=== PATIENT | male | born 1965 | race Caucasian/White ===

== ENCOUNTER 2018-12-12 00:37 | Outpatient (CLI) | payer BC ==
[~2018-12-12 00:37] MED LIST: AMIO200T54 PO; APIX5TAB3 PO; ATOR40TA PO; DIGO250T77 PO; FURO40TA4 PO; GABA-530 PO; GLYB5TAB7 PO; LEVO25TA7 PO; METF500T PO; METO25TA6 PO; POTA-82 PO
== END 2018-12-12 23:59 | disposition home or self-care (01) ==
LOC: DIABETIC 00:37
PROVIDERS: ATTEND Student in an Organized Health Care Education/Training Program
DX: E11.9 Type 2 diabetes mellitus without complications (principal); I10 Essential (primary) hypertension
CPT/HCPCS: G0108

== ENCOUNTER 2020-03-07 10:58 | Day surgery (SDC) | payer BC ==
[2020-03-07] VITALS (13 sets, daily range): BP systolic 104–135; BP diastolic 63–86
[~2020-03-07] VITALS: Ht 190.5 cm; Wt 119.7 kg
[~2020-03-07 10:58] MED LIST changes: -AMIO200T54 PO; +AMIO200T62 PO; +DIGO250T2 PO; -DIGO250T77 PO
[2020-03-07] MEDS ORDERED: fentaNYL/PF 50MCG/1 ML 2ML syringe IV ONE (11:20)
[2020-03-07] MEDS ORDERED: MIDAZolam 1mg/ml 10ml vial IV ONE (11:20)
[2020-03-07] MEDS ORDERED: GLIM2TAB6 PO (11:27)
[2020-03-07] MEDS ORDERED: EMPA25TA PO (11:27)
[2020-03-07] MEDS ORDERED: SEMA1PEN (11:27)
[2020-03-07] MEDS ORDERED: ALLO300T8 PO (11:27)
[2020-03-07 12:01] LABS: BASOPHILS % (AUTO) 0.5 % (0-1); EOSINOPHILS # (AUTO) 0.1 X10'3 (0-0.9); EOSINOPHILS % (AUTO) 1.5 % (0-6); HEMATOCRIT 42.5 % (42.0-52.0); HEMOGLOBIN 14.1 g/dl (14.0-17.9); LYMPHOCYTES # (AUTO) 0.8 X10'3 (1.1-4.8); MEAN CORPUSCULAR HEMOGLOBIN 30.1 PG (27.0-31.0); MEAN CORPUSCULAR HGB CONC 33.1 g/dL (33.0-36.5); MONOCYTES # (AUTO) 0.7 X10'3 (0-0.9); MONOCYTES % (AUTO) 9.2 % (2-12); NEUTROPHILS # (AUTO) 5.5 X10'3 (1.8-7.7); NEUTROPHILS % (AUTO) 77.8 % (42-75); PLATELET COUNT 202 X10'3 (140-440); RED BLOOD COUNT 4.67 X10'6 (4.70-6.10); RED CELL DISTRIBUTION WIDTH 17.1 % (11.5-14.5); WHITE BLOOD COUNT 7.1 X10'3 (4.5-11.0)
[2020-03-07 12:12] LABS: ALBUMIN 3.5 G/DL (3.4-5.0); ANION GAP 6 (8-16); BLOOD UREA NITROGEN 30 MG/DL (7-18); BUN/CREATININE RATIO 16.8 (5.4-32.0); CHLORIDE 105 MMOL/L (99-107); CREATININE 1.79 MG/DL (0.60-1.10); GLUCOSE 160 MG/DL (70-104); MAGNESIUM 2.3 MG/DL (1.5-2.4); POTASSIUM 5.2 MMOL/L (3.5-5.1); SODIUM 138 MMOL/L (135-145); TOTAL CARBON DIOXIDE 26.9 MMOL/L (24-32); eGFR 39 ML/MIN
== END 2020-03-07 15:05 | disposition home or self-care (01) ==
LOC: SSTAY O 10:58
PROVIDERS: ATTEND Internal Medicine Cardiovascular Disease
DX: I48.91 Unspecified atrial fibrillation (principal); I25.10 Atherosclerotic heart disease of native coronary artery without angina pectoris; I25.2 Old myocardial infarction; E11.9 Type 2 diabetes mellitus without complications; G43.909 Migraine, unspecified, not intractable, without status migrainosus; G47.33 Obstructive sleep apnea (adult) (pediatric); D64.9 Anemia, unspecified; Z79.899 Other long term (current) drug therapy; Z79.84 Long term (current) use of oral hypoglycemic drugs; Z98.890 Other specified postprocedural states; Z87.891 Personal history of nicotine dependence; Z79.01 Long term (current) use of anticoagulants; Z95.5 Presence of coronary angioplasty implant and graft; Z83.3 Family history of diabetes mellitus
CPT/HCPCS: 36415; 80048; 82948; 83735; 85025; 85610; 92960; 93005; J2250; J3010

== ENCOUNTER 2020-04-17 09:30 | Inpatient (IN) | payer BC ==
[2020-04-10 14:28] LABS: BASOPHILS % (AUTO) 0.5 % (0-1); EOSINOPHILS # (AUTO) 0.1 X10'3 (0-0.9); EOSINOPHILS % (AUTO) 0.9 % (0-6); LYMPHOCYTES # (AUTO) 1.1 X10'3 (1.1-4.8); LYMPHOCYTES % (AUTO) 14.3 % (21-51); MEAN CORPUSCULAR HEMOGLOBIN 31.5 PG (27.0-31.0); MEAN CORPUSCULAR HGB CONC 33.7 g/dL (33.0-36.5); MEAN CORPUSCULAR VOLUME 93.6 FL (78-98); MEAN PLATELET VOLUME 8.6 FL (7.4-10.4); MONOCYTES # (AUTO) 0.6 X10'3 (0-0.9); MONOCYTES % (AUTO) 7.5 % (2-12); NEUTROPHILS # (AUTO) 5.8 X10'3 (1.8-7.7); NEUTROPHILS % (AUTO) 76.8 % (42-75); PRE OP HEMOGLOBIN 14.8 g/dL (14.0-17.9); PRE OP PLATELET COUNT 181 X10'3 (140-440); RED BLOOD COUNT 4.71 X10'6 (4.70-6.10); RED CELL DISTRIBUTION WIDTH 18.2 % (11.5-14.5)
[2020-04-10 14:38] LABS: ALBUMIN 4.1 G/DL (3.4-5.0); ALBUMIN/GLOBULIN RATIO 1.1 (1.1-1.5); ALKALINE PHOSPHATASE 96 IU/L (46-116); BLOOD UREA NITROGEN 29 MG/DL (7-18); BUN/CREATININE RATIO 14.6 (5.4-32.0); CALCIUM 9.1 MG/DL (8.5-10.1); CHLORIDE 107 MMOL/L (99-107); CREATININE 1.99 MG/DL (0.60-1.10); PRE OP ALT 29 U/L (30-65); PRE OP ANION GAP 9 (8-16); PRE OP AST 17 U/L (10-37); PRE OP BILIRUB, TOTAL 0.5 MG/DL (0.0-1.0); PRE OP POTASSIUM 4.1 MMOL/L (3.4-5.1); PRE OP SODIUM 142 MMOL/L (135-145); TOTAL CARBON DIOXIDE 26.2 MMOL/L (24-32); TOTAL PROTEIN 7.8 G/DL (6.4-8.2); eGFR 35 ML/MIN
[2020-04-10 14:42] LABS: PRE OP GLUCOSE 217 MG/DL (70-104)
[2020-04-17] VITALS (30 sets, daily range): BP systolic 117–202; BP diastolic 73–112
[~2020-04-17] VITALS: Ht 190.5 cm; Wt 117.9 kg
[~2020-04-17 09:30] MED LIST changes: +ALLO300T8 PO; +CYAN100085 SL; -DIGO250T2 PO; +DOCUMENT DATE & TIME OF BETA-BLOCKER PO ONE; +EMPA25TA PO; +FERR1TAB21 PO; -GABA-530 PO; +GLIM2TAB6 PO; -GLYB5TAB7 PO; -LEVO25TA7 PO; +LYR75C PO; -METF500T PO; +SEMA1PEN SQ; +ceFAZolin 2gm in dextrose, iso 50 ML IV ONE; +famotidine 20mg tablet PO ONE; +ringers solution, lacted 1,000 ML IV SCH
[2020-04-17] MEDS ORDERED: BUPIVAcaine/PF 2.5mg/ml (0.25%) 10ml vial ONE (12:36)
[2020-04-17] MEDS ORDERED: BUPIVAcaine/PF 2.5 mg/ml (0.25%) 30ml vial ONE (12:36)
[2020-04-17] MEDS ORDERED: LIDOcaine 1% 30ml preserv. free vial ONE (12:36)
[2020-04-17] MEDS ORDERED: BUPIVACAINE liposomal/PF 13.3 MG/ML vial IM ONE (12:36)
[2020-04-17] MEDS ORDERED: dexamethasone sod phosphate 10mg/ml inj ONE (12:45)
[2020-04-17] MEDS ORDERED: acetaminophen 1000 MG/100ml vial IV ONE (12:45)
[2020-04-17] MEDS ORDERED: sevoflurane 250ml liquid IH ONE (12:45)
[2020-04-17] MEDS ORDERED: fentaNYL /PF 50mcg/ml 5ml ampule ONE (12:47)
[2020-04-17] MEDS ORDERED: midazolam 2 mg/2 ml injection ONE (12:47)
[2020-04-17] MEDS ORDERED: meperidine/PF 25mg/ml syringe IV PRN ×3 (13:00)
[2020-04-17] MEDS ORDERED: morphine 2 MG/ML inj. syringe IV PRN (13:00)
[2020-04-17] MEDS ORDERED: proCHLORperazine 10 MG/2 ml inj IV PRN (13:00)
[2020-04-17] MEDS ORDERED: morphine 4 MG/ML inj SYRINge IV PRN (13:00)
[2020-04-17] MEDS ORDERED: ondansetron/PF 4mg/2ml inj IV PRN ×2 (13:00→16:15)
[2020-04-17] MEDS ORDERED: ringers solution, lacted 1,000 ML IV SCH ×2 (13:00→16:15)
[2020-04-17] MEDS ORDERED: LIDOcaine 2% (20mg/ml) 5ml vial ONE (14:40)
[2020-04-17] MEDS ORDERED: propofol inj 20 ML IV ONE (14:40)
[2020-04-17] MEDS ORDERED: rocuronium 10mg/ml inj IV ONE (14:40)
[2020-04-17] MEDS ORDERED: succinylcholine 20mg/ml inj IV ONE (14:41)
[2020-04-17] MEDS ORDERED: neostigmine methylsulfate 1 MG/ML 10ml vial ONE (14:41)
[2020-04-17] MEDS ORDERED: ondansetron/PF 4mg/2ml inj ONE (14:41)
[2020-04-17] MEDS ORDERED: glycopyrrolate 0.2mg/ml inj ONE (14:41)
--- NOTE | 2020-04-17 16:00 | NUR ---
RECEIVED FROM OR VIA BED ACCOMPANIED BY ANESTHESIOLOGIST DR WALSH, REPORT GIVEN. PT DROWSY BUT AWAKENS EASILY AND DENIES PAIN AT THIS TIME. 20 GAUGE PIV L FA PATENT AND RUNNING LR AT 100 ML/HR.DERMABOND AND STERI STRIP DRESSINGS CDI WITH ABDOMINAL BINDER IN PLACE. ABD SOFT, CAP REFILL GOOD, PERIPHERAL PULSES PALPABLE, MARTINEZ
[2020-04-17] MEDS ORDERED: hydrALAZINE 20mg/ml inj. IV PRN (16:15)
[2020-04-17] MEDS ORDERED: hydrALAZINE 20mg/ml inj. IV ONE (16:19)
[2020-04-17] MEDS ORDERED: Potassium Cl inj 20 MEQ in ringers solution, lacted 1,000 ML IV SCH (16:20)
[2020-04-17] MEDS ORDERED: naloxone 0.4 mg/ml inj IV PRN (16:20)
[2020-04-17] MEDS ORDERED: CADD PCA waste documentation MC PRN (16:20)
[2020-04-17] MEDS: HYDROmorphone/NS 1 mg/ml CADD 50 ML IV SCH ×4 (17:23→23:00)
[2020-04-17] MEDS ORDERED: glucagon, human recombinant 1mg kit SUBCUT PRN (17:40)
[2020-04-17] MEDS ORDERED: dextrose ORAL solution 15 GM/59 ML bottle PO PRN ×2 (17:40)
[2020-04-17] MEDS ORDERED: dextrose 50%-water 50ml dispensing syringe IV PRN ×2 (17:40)
[2020-04-17] MEDS ORDERED: MESSAGE TO PHARMACY PO ONE (17:40)
[2020-04-17] MEDS ORDERED: insulin Lispro (HumaLOG) vial - multi-dose SQ SCH (17:40)
--- NOTE | 2020-04-17 19:30 | NUR ---
Received report from Nica RODARTE from recovery. Patient came to floor on hospital bed. Bed in locked & low position. Call light placed within reach.
--- NOTE | 2020-04-17 19:40 | NUR ---
TRANSFERRED VIA BED WITH OHTF ACCOMPANIED BY MYSELF, REPORT GIVEN. PT AWAKE AND ALERT AND DENIES PAIN AT THIS TIME. SPINAL SENSATION AT UMBILICUS.18 GAUGE PIV L WRIST PATENT AND RUNNING LR AT 100 ML/HR. PERIPHERAL PULSES PALPABLE, VSS, SKIN PINK AND WARM, MCKENZIE DRESSING L KNEE CDI WITH KNEE WRAP, KNEE BRACE, AND POWDER PACK IN PLACE. ON Q BLOCK CATHETER IN PLACE. RESTING COMFORTABLY
[2020-04-17] MEDS: ondansetron/PF 4mg/2ml inj IV PRN (20:57)
[2020-04-17] MEDS ORDERED: metoprolol tartrate 25mg tablet PO SCH (21:00)
[2020-04-17] MEDS: insulin glargine (Lantus) pen - multi-dose SQ SCH (21:00)
[2020-04-17] MEDS: atorvastatin 20mg tablet PO SCH (21:01)
[2020-04-17] MEDS: amiodarone 200mg tablet PO SCH (21:01)
[2020-04-17] MEDS: pregabalin 75mg capsule PO SCH (21:01)
[2020-04-17] MEDS ORDERED: normal saline 1000ml 1,000 ML IV SCH (23:50)
[2020-04-18] MEDS: HYDROmorphone/NS 1 mg/ml CADD 50 ML IV SCH ×12 (01:00→23:00)
[2020-04-18 02:00] VITALS: BP 124/76
[2020-04-18] MEDS: ondansetron/PF 4mg/2ml inj IV PRN ×2 (03:03→09:19)
--- NOTE | 2020-04-18 03:18 | NUR ---
Walked patient to nurses station and back. Patient became very nauseous.
[2020-04-18 06:30] VITALS: BP 137/75
--- NOTE | 2020-04-18 06:34 | NUR ---
Problems reprioritized. Patient report given, questions answered & plan of care reviewed with Tabitha RODARTE.
[2020-04-18] MEDS: apixaban 5mg tablet PO SCH ×2 (07:36→20:34)
[2020-04-18] MEDS: potassium Cl 20 mEq SR tablet PO SCH (07:36)
[2020-04-18] MEDS: amiodarone 200mg tablet PO SCH ×2 (07:36→20:34)
[2020-04-18] MEDS: cyanocobalamin 500mcg tablet PO SCH (07:37)
[2020-04-18] MEDS: furosemide 40mg tablet PO SCH (07:37)
[2020-04-18 07:49] LABS: BASOPHILS % (AUTO) 0.2 % (0-1); EOSINOPHILS % (AUTO) 0.1 % (0-6); LYMPHOCYTES # (AUTO) 0.9 X10'3 (1.1-4.8); LYMPHOCYTES % (AUTO) 6.9 % (21-51); MEAN CORPUSCULAR HEMOGLOBIN 31.3 PG (27.0-31.0); MEAN CORPUSCULAR HGB CONC 33.2 g/dL (33.0-36.5); MEAN CORPUSCULAR VOLUME 94.1 FL (78-98); MEAN PLATELET VOLUME 8.8 FL (7.4-10.4); MONOCYTES # (AUTO) 0.9 X10'3 (0-0.9); MONOCYTES % (AUTO) 6.8 % (2-12); NEUTROPHILS # (AUTO) 11.2 X10'3 (1.8-7.7); PLATELET COUNT 195 X10'3 (140-440); RED BLOOD COUNT 4.78 X10'6 (4.70-6.10); RED CELL DISTRIBUTION WIDTH 18.8 % (11.5-14.5)
[2020-04-18] MEDS ORDERED: enoxaparin 40mg/0.4ml syringe SQ SCH (08:00)
[2020-04-18] MEDS ORDERED: IRON CARBONYL PO SCH (08:00)
[2020-04-18] MEDS ORDERED: ASCORBIC ACID PO SCH (08:00)
[2020-04-18] MEDS ORDERED: metoprolol succinate 25mg (24-HOUR) SR. Tablet PO SCH (08:00)
[2020-04-18] MEDS ORDERED: EMPAGLIFLOZIN 25 MG PO SCH (08:00)
[2020-04-18] MEDS ORDERED: allopurinol 300 MG tablet PO SCH (08:00)
[2020-04-18 08:30] LABS: ALBUMIN 3.5 G/DL (3.4-5.0); ANION GAP 12 (8-16); BLOOD UREA NITROGEN 26 MG/DL (7-18); BUN/CREATININE RATIO 14.8 (5.4-32.0); CALCIUM 8.5 MG/DL (8.5-10.1); CHLORIDE 109 MMOL/L (99-107); CREATININE 1.76 MG/DL (0.60-1.10); GLUCOSE 158 MG/DL (70-104); POTASSIUM 4.7 MMOL/L (3.5-5.1); SODIUM 144 MMOL/L (135-145); eGFR 40 ML/MIN
[2020-04-18 08:39] LABS: HEMOGLOBIN A1C 7.3 % (4.5-6.2)
[2020-04-18 11:00] VITALS: BP 142/82
[2020-04-18] MEDS: normal saline 1000ml 1,000 ML IV SCH ×2 (13:00→23:09)
--- NOTE | 2020-04-18 16:38 | NUR ---
DM consult: Pt seen at bedside with SO present for written and verbal protein and DM educations. Pt denies questions about DM management at this time. Pt endorses a good appetite despite 25-50% PO intake on clear liquid diet. Pt reports he isn't eating much d/t the high sugar foods. D/w RN who informed RD that MD has added CHO controlled to diet order. Pt denies food allergies however reports dislike to fish, mushrooms, and cauliflower, dietary notified. Pt denies difficulty swallowing however some difficulty chewing d/t missing teeth although denies need for texture modification with diet advancement. Pt provided with RD contact information and encouraged to reach out if needed. Will remain available. Addendum: 04/18/20 at [facility] by Apurva Gonzalez RD Amended: Links added.
--- NOTE | 2020-04-18 16:46 | NUR ---
PAGER ID: [phone] MESSAGE: [id number] Akhil Elizabeth : 24hr tele is up. no calls from tele are you fine with DC'ing it? also, patient has no code status listed. thanks, cisco [id number]
[2020-04-18 18:00] VITALS: BP 141/83
--- NOTE | 2020-04-18 18:24 | NUR ---
Problems reprioritized. Patient report given, questions answered & plan of care reviewed with ASTER Lua.
--- NOTE | 2020-04-18 18:26 | NUR ---
Patient in room ORTHO 4015. I have received report from Tabitha RODARTE and had the opportunity to ask questions and assume patient care.
[2020-04-18] MEDS: ondansetron 4mg rapidly disintigrating tab PO PRN (18:54)
[2020-04-18] MEDS: pregabalin 75mg capsule PO SCH (20:34)
[2020-04-18] MEDS: allopurinol 300 MG tablet PO SCH (20:34)
[2020-04-18] MEDS: atorvastatin 20mg tablet PO SCH (20:34)
[2020-04-18] MEDS: metoprolol succinate 25mg (24-HOUR) SR. Tablet PO SCH (20:35)
[2020-04-18] MEDS: insulin glargine (Lantus) pen - multi-dose SQ SCH (21:00)
[2020-04-18 22:00] VITALS: BP 138/75
[2020-04-18] MEDS ORDERED: potassium Cl 20 mEq SR tablet PO PRN ×2 (22:40)
[2020-04-18] MEDS ORDERED: magnesium 4gm in 100ml NS 100 ML IV PRN (22:40)
[2020-04-18] MEDS ORDERED: potassium CL 10mEq/100ml bag 100 ML IV PRN (22:40)
[2020-04-18] MEDS: K and/or MAG REPLACEMENT MC SCH (22:40)
[2020-04-18] MEDS ORDERED: magnesium Cl slow-release 64mg tablet PO PRN (22:40)
[2020-04-19] MEDS: HYDROmorphone/NS 1 mg/ml CADD 50 ML IV SCH ×12 (01:00→23:00)
[2020-04-19] MEDS: normal saline 1000ml 1,000 ML IV SCH ×5 (02:20→23:41)
[2020-04-19 06:00] VITALS: BP 132/75
--- NOTE | 2020-04-19 06:05 | NUR ---
Patient in room ORTHO 4015. I have received report from NIMCO RODARTE and had the opportunity to ask questions and assume patient care.
--- NOTE | 2020-04-19 06:27 | NUR ---
Problems reprioritized. Patient report given, questions answered & plan of care reviewed with Arturo RODARTE.
[2020-04-19 06:33] LABS: BASOPHILS % (AUTO) 0.3 % (0-1); EOSINOPHILS # (AUTO) 0.1 X10'3 (0-0.9); EOSINOPHILS % (AUTO) 0.8 % (0-6); HEMATOCRIT 40.2 % (42.0-52.0); HEMOGLOBIN 13.5 g/dl (14.0-17.9); LYMPHOCYTES % (AUTO) 10.9 % (21-51); MEAN CORPUSCULAR HEMOGLOBIN 31.6 PG (27.0-31.0); MEAN CORPUSCULAR HGB CONC 33.7 g/dL (33.0-36.5); MEAN CORPUSCULAR VOLUME 93.8 FL (78-98); MEAN PLATELET VOLUME 8.2 FL (7.4-10.4); MONOCYTES # (AUTO) 0.8 X10'3 (0-0.9); NEUTROPHILS # (AUTO) 7.2 X10'3 (1.8-7.7); PLATELET COUNT 157 X10'3 (140-440); RED BLOOD COUNT 4.28 X10'6 (4.70-6.10); RED CELL DISTRIBUTION WIDTH 18.3 % (11.5-14.5); WHITE BLOOD COUNT 9.1 X10'3 (4.5-11.0)
[2020-04-19 06:59] LABS: ALANINE AMINOTRANSFERASE 13 U/L (12-78); ALBUMIN/GLOBULIN RATIO 0.9 (1.1-1.5); ALKALINE PHOSPHATASE 79 IU/L (46-116); ANION GAP 10 (8-16); ASPARTATE AMINO TRANSFERASE 14 U/L (10-37); BILIRUBIN,TOTAL 0.8 MG/DL (0.1-1.0); BLOOD UREA NITROGEN 19 MG/DL (7-18); BUN/CREATININE RATIO 12.7 (5.4-32.0); CHLORIDE 111 MMOL/L (99-107); GLUCOSE 121 MG/DL (70-104); MAGNESIUM 2.1 MG/DL (1.5-2.4); PHOSPHORUS 2.7 MG/DL (2.3-4.5); POTASSIUM 4.5 MMOL/L (3.5-5.1); SODIUM 144 MMOL/L (135-145); TOTAL CARBON DIOXIDE 23.3 MMOL/L (24-32); TOTAL PROTEIN 6.3 G/DL (6.4-8.2); eGFR 48 ML/MIN
[2020-04-19] MEDS: potassium Cl 20 mEq SR tablet PO SCH (07:38)
[2020-04-19] MEDS: amiodarone 200mg tablet PO SCH ×2 (07:38→19:45)
[2020-04-19] MEDS: apixaban 5mg tablet PO SCH ×2 (07:38→19:45)
[2020-04-19] MEDS: cyanocobalamin 500mcg tablet PO SCH (07:38)
[2020-04-19] MEDS: furosemide 40mg tablet PO SCH (07:38)
[2020-04-19] MEDS: ondansetron 4mg rapidly disintigrating tab PO PRN (07:38)
[2020-04-19] MEDS: K and/or MAG REPLACEMENT MC SCH ×2 (08:00→19:34)
--- NOTE | 2020-04-19 08:32 | NUR ---
PAGER ID: [phone] MESSAGE: [id number] RE: FAIZA [id number] PT STATED YOU TALKED TO HIM ABOUT STOOL SOFTNER/LAXATIVE YESTERDAY, BUT I DONT SEE AN ORDER.
[2020-04-19 10:00] VITALS: BP 146/83
[2020-04-19] MEDS ORDERED: magnesium hydroxide 30ml (MOM) UD suspension PO ONE (10:00)
[2020-04-19] MEDS: methylnaltrexone br 12mg/0.6ml inj***SubQ only SQ ONE ×2 (10:00→10:23)
[2020-04-19] MEDS ORDERED: oxyCODONE/APAP 5-325mg tablet PO PRN (10:00)
[2020-04-19] MEDS ORDERED: docusate sod 100mg capsule PO ONE (10:20)
[2020-04-19] MEDS ORDERED: normal saline 1000ml 1,000 ML IV SCH (13:43)
[2020-04-19] MEDS: polyethylene glycol 3350 17gm powd pack PO SCH ×2 (13:45→19:45)
[2020-04-19 18:00] VITALS: BP 136/74
--- NOTE | 2020-04-19 18:00 | NUR ---
Problems reprioritized. Patient report given, questions answered & plan of care reviewed with KAUSHIK RODARTE.
[2020-04-19] MEDS: docusate sod 100mg capsule PO SCH (19:44)
[2020-04-19] MEDS: pregabalin 75mg capsule PO SCH (19:44)
[2020-04-19] MEDS: atorvastatin 20mg tablet PO SCH (19:45)
[2020-04-19] MEDS: metoprolol succinate 25mg (24-HOUR) SR. Tablet PO SCH (19:45)
[2020-04-19] MEDS: allopurinol 300 MG tablet PO SCH (19:45)
[2020-04-19] MEDS: insulin glargine (Lantus) pen - multi-dose SQ SCH (21:00)
[2020-04-19 22:00] VITALS: BP 116/59
[2020-04-20] MEDS: HYDROmorphone/NS 1 mg/ml CADD 50 ML IV SCH ×12 (01:00→23:00)
[2020-04-20] MEDS: ondansetron 4mg rapidly disintigrating tab PO PRN (01:19)
--- NOTE | 2020-04-20 06:33 | NUR ---
Problems reprioritized. Patient report given, questions answered & plan of care reviewed with ASTER [place].
[2020-04-20 06:49] LABS: BASOPHILS % (AUTO) 0.5 % (0-1); EOSINOPHILS # (AUTO) 0.1 X10'3 (0-0.9); EOSINOPHILS % (AUTO) 1.4 % (0-6); HEMATOCRIT 40.2 % (42.0-52.0); HEMOGLOBIN 13.5 g/dl (14.0-17.9); LYMPHOCYTES # (AUTO) 0.9 X10'3 (1.1-4.8); LYMPHOCYTES % (AUTO) 9.6 % (21-51); MEAN CORPUSCULAR HEMOGLOBIN 31.8 PG (27.0-31.0); MEAN CORPUSCULAR HGB CONC 33.7 g/dL (33.0-36.5); MEAN CORPUSCULAR VOLUME 94.5 FL (78-98); MEAN PLATELET VOLUME 8.3 FL (7.4-10.4); MONOCYTES # (AUTO) 0.8 X10'3 (0-0.9); MONOCYTES % (AUTO) 8.6 % (2-12); NEUTROPHILS # (AUTO) 7.3 X10'3 (1.8-7.7); NEUTROPHILS % (AUTO) 79.9 % (42-75); PLATELET COUNT 150 X10'3 (140-440); RED BLOOD COUNT 4.25 X10'6 (4.70-6.10); RED CELL DISTRIBUTION WIDTH 18.4 % (11.5-14.5); WHITE BLOOD COUNT 9.1 X10'3 (4.5-11.0)
[2020-04-20 07:00] VITALS: BP 139/79
[2020-04-20 07:05] LABS: ALANINE AMINOTRANSFERASE 11 U/L (12-78); ALBUMIN 2.9 G/DL (3.4-5.0); ALBUMIN/GLOBULIN RATIO 0.9 (1.1-1.5); ALKALINE PHOSPHATASE 74 IU/L (46-116); ANION GAP 10 (8-16); ASPARTATE AMINO TRANSFERASE 13 U/L (10-37); BILIRUBIN,TOTAL 0.7 MG/DL (0.1-1.0); BLOOD UREA NITROGEN 17 MG/DL (7-18); BUN/CREATININE RATIO 12.4 (5.4-32.0); CALCIUM 8.3 MG/DL (8.5-10.1); CHLORIDE 108 MMOL/L (99-107); CREATININE 1.37 MG/DL (0.60-1.10); GLUCOSE 139 MG/DL (70-104); MAGNESIUM 2.2 MG/DL (1.5-2.4); PHOSPHORUS 2.6 MG/DL (2.3-4.5); SODIUM 143 MMOL/L (135-145); TOTAL CARBON DIOXIDE 24.9 MMOL/L (24-32); TOTAL PROTEIN 6.3 G/DL (6.4-8.2); eGFR 54 ML/MIN
[2020-04-20] MEDS: K and/or MAG REPLACEMENT MC SCH ×2 (07:17→18:45)
[2020-04-20] MEDS: potassium Cl 20 mEq SR tablet PO SCH (08:00)
[2020-04-20] MEDS: apixaban 5mg tablet PO SCH ×2 (08:23→20:14)
[2020-04-20] MEDS: docusate sod 100mg capsule PO SCH ×2 (08:23→20:14)
[2020-04-20] MEDS: amiodarone 200mg tablet PO SCH ×2 (08:23→20:14)
[2020-04-20] MEDS: cyanocobalamin 500mcg tablet PO SCH (08:23)
[2020-04-20 10:00] VITALS: BP 129/77
[2020-04-20] MEDS: normal saline 1000ml 1,000 ML IV SCH (12:01)
[2020-04-20] MEDS ORDERED: methylnaltrexone br 12mg/0.6ml inj***SubQ only SQ SCH (16:00)
[2020-04-20 18:00] VITALS: BP 131/76
--- NOTE | 2020-04-20 19:11 | NUR ---
REPORT REC'D FROM ASTER SANTIAGO.
[2020-04-20] MEDS: atorvastatin 20mg tablet PO SCH (20:13)
[2020-04-20] MEDS: allopurinol 300 MG tablet PO SCH (20:14)
[2020-04-20] MEDS: metoprolol succinate 25mg (24-HOUR) SR. Tablet PO SCH (20:14)
[2020-04-20] MEDS: pregabalin 75mg capsule PO SCH (20:14)
[2020-04-20] MEDS: polyethylene glycol 3350 17gm powd pack PO SCH (20:14)
[2020-04-20] MEDS: insulin glargine (Lantus) pen - multi-dose SQ SCH (21:00)
[2020-04-20 22:00] VITALS: BP 125/69
[2020-04-21] MEDS: HYDROmorphone/NS 1 mg/ml CADD 50 ML IV SCH ×3 (01:00→05:00)
[2020-04-21 06:00] VITALS: BP 125/71
--- NOTE | 2020-04-21 06:10 | NUR ---
REPORT GIVEN TO ASTER SANTIAGO.
[2020-04-21 06:34] LABS: BASOPHILS # (AUTO) 0.1 X10'3 (0-0.2); BASOPHILS % (AUTO) 0.8 % (0-1); EOSINOPHILS # (AUTO) 0.1 X10'3 (0-0.9); EOSINOPHILS % (AUTO) 1.7 % (0-6); HEMATOCRIT 39.8 % (42.0-52.0); HEMOGLOBIN 13.1 g/dl (14.0-17.9); LYMPHOCYTES # (AUTO) 0.5 X10'3 (1.1-4.8); LYMPHOCYTES % (AUTO) 6.8 % (21-51); MEAN CORPUSCULAR HEMOGLOBIN 31.3 PG (27.0-31.0); MEAN CORPUSCULAR HGB CONC 32.9 g/dL (33.0-36.5); MEAN CORPUSCULAR VOLUME 95.1 FL (78-98); MEAN PLATELET VOLUME 8.5 FL (7.4-10.4); MONOCYTES # (AUTO) 0.5 X10'3 (0-0.9); NEUTROPHILS # (AUTO) 6.4 X10'3 (1.8-7.7); NEUTROPHILS % (AUTO) 84.7 % (42-75); PLATELET COUNT 156 X10'3 (140-440); RED BLOOD COUNT 4.18 X10'6 (4.70-6.10); RED CELL DISTRIBUTION WIDTH 18.2 % (11.5-14.5); WHITE BLOOD COUNT 7.6 X10'3 (4.5-11.0)
[2020-04-21 06:47] LABS: ALANINE AMINOTRANSFERASE 10 U/L (12-78); ALBUMIN 2.6 G/DL (3.4-5.0); ALBUMIN/GLOBULIN RATIO 0.7 (1.1-1.5); ALKALINE PHOSPHATASE 68 IU/L (46-116); ANION GAP 10 (8-16); ASPARTATE AMINO TRANSFERASE 11 U/L (10-37); BILIRUBIN,TOTAL 0.6 MG/DL (0.1-1.0); BLOOD UREA NITROGEN 15 MG/DL (7-18); BUN/CREATININE RATIO 11.3 (5.4-32.0); CHLORIDE 109 MMOL/L (99-107); CREATININE 1.33 MG/DL (0.60-1.10); GLUCOSE 132 MG/DL (70-104); PHOSPHORUS 2.7 MG/DL (2.3-4.5); POTASSIUM 4.1 MMOL/L (3.5-5.1); SODIUM 145 MMOL/L (135-145); TOTAL PROTEIN 6.1 G/DL (6.4-8.2); eGFR 55 ML/MIN
[2020-04-21] MEDS: amiodarone 200mg tablet PO SCH (07:46)
[2020-04-21] MEDS: docusate sod 100mg capsule PO SCH (07:46)
[2020-04-21] MEDS: oxyCODONE/APAP 5-325mg tablet PO PRN ×2 (07:46→12:42)
[2020-04-21] MEDS: apixaban 5mg tablet PO SCH (07:46)
[2020-04-21] MEDS: cyanocobalamin 500mcg tablet PO SCH (07:46)
--- NOTE | 2020-04-21 08:07 | NUR ---
Charge Nurse Jannet fong signed 29.9 Cadd wasted
--- NOTE | 2020-04-21 08:08 | NUR ---
wasted cadd w/second nurse
[2020-04-21 10:00] VITALS: BP 115/68
[2020-04-21] MEDS ORDERED: PER5325T PO (12:05)
[2020-04-21] MEDS ORDERED: oxyCODONE/APAP 5-325mg tablet PO ONE (13:00)
[2020-04-22] MEDS ORDERED: methylnaltrexone br 12mg/0.6ml inj***SubQ only SQ SCH (08:00)
== END 2020-04-21 14:25 | disposition home or self-care (01) | DRG 336 ==
LOC: PAS 09:30 → UNDOADMIN 16:20 → SUR 3N 16:20 → ORTHO 4S 19:30
PROVIDERS: ADMIT Surgery; ATTEND Surgery
PROC: 0DNU4ZZ Release Omentum, Percutaneous Endoscopic Approach (ICD-10-PCS; 2020-04-17)
PROC: 0DN84ZZ Release Small Intestine, Percutaneous Endoscopic Approach (ICD-10-PCS; 2020-04-17)
PROC: 8E0W4CZ Robotic Assisted Procedure of Trunk Region, Percutaneous Endoscopic Approach (ICD-10-PCS; 2020-04-17)
PROC: 0WUF4JZ Supplement Abdominal Wall with Synthetic Substitute, Percutaneous Endoscopic Approach (ICD-10-PCS; principal; 2020-04-17 12:45)
DX: K43.0 Incisional hernia with obstruction, without gangrene (principal); N17.9 Acute kidney failure, unspecified; D72.829 Elevated white blood cell count, unspecified; E11.40 Type 2 diabetes mellitus with diabetic neuropathy, unspecified; E66.9 Obesity, unspecified; I12.9 Hypertensive chronic kidney disease with stage 1 through stage 4 chronic kidney disease, or unspecified chronic kidney disease; E78.5 Hyperlipidemia, unspecified; N18.9 Chronic kidney disease, unspecified; E11.21 Type 2 diabetes mellitus with diabetic nephropathy; G47.33 Obstructive sleep apnea (adult) (pediatric); E03.9 Hypothyroidism, unspecified; I25.10 Atherosclerotic heart disease of native coronary artery without angina pectoris; F12.90 Cannabis use, unspecified, uncomplicated; I48.91 Unspecified atrial fibrillation; Z79.899 Other long term (current) drug therapy; Z87.442 Personal history of urinary calculi; Z87.891 Personal history of nicotine dependence; Z90.49 Acquired absence of other specified parts of digestive tract; Z68.32 Body mass index [BMI] 32.0-32.9, adult; Z95.5 Presence of coronary angioplasty implant and graft
CPT/HCPCS: Z7506; Z7508; 36415; 80048; 80053; 82948; 83036; 83735; 84100; 84145; 85025; 87081; A4215; A4618; C1713; C1781; C9290; G0378; J0131; J0330; J0360; J1100; J1170; J1815; J2001; J2175; J2212; J2250; J2270; J2405; J2704; J2710; J3010; J3490; J7030; J7120

== ENCOUNTER 2024-01-27 06:36 | Day surgery (SDC) | payer BC ==
[~2024-01-27] VITALS: Ht 188 cm; Wt 110.7 kg
[2024-01-27] VITALS (10 sets, daily range): BP systolic 107–125; BP diastolic 67–86; PULSE 82–107; RESP 16; TEMP 97.6; O2SAT 90–100
[~2024-01-27 06:36] MED LIST changes: -AMIO200T62 PO; +AMIO200T72 PO; -DOCUMENT DATE & TIME OF BETA-BLOCKER PO ONE; +LOP25T PO; -METO25TA6 PO; +PER5325T PO; +POTA-366 PO; -POTA-82 PO; -ceFAZolin 2gm in dextrose, iso 50 ML IV ONE; -famotidine 20mg tablet PO ONE; -ringers solution, lacted 1,000 ML IV SCH
[2024-01-27 07:42] LABS: INR 1.1 INR; PROTHROMBIN TIME 11.7 SECONDS (9.0-12.0)
[2024-01-27 07:46] LABS: BASOPHILS % (AUTO) 0.5 % (0-1); EOSINOPHILS # (AUTO) 0.1 X10'3 (0-0.9); EOSINOPHILS % (AUTO) 0.8 % (0-6); HEMATOCRIT 36.3 % (42.0-52.0); LYMPHOCYTES # (AUTO) 0.9 X10'3 (1.1-4.8); LYMPHOCYTES % (AUTO) 13.9 % (21-51); MEAN CORPUSCULAR HEMOGLOBIN 26.9 PG (27.0-31.0); MEAN CORPUSCULAR VOLUME 81.8 FL (78-98); MEAN PLATELET VOLUME 8.3 FL (7.4-10.4); MONOCYTES # (AUTO) 0.5 X10'3 (0-0.9); MONOCYTES % (AUTO) 7.2 % (2-12); NEUTROPHILS # (AUTO) 5.1 X10'3 (1.8-7.7); NEUTROPHILS % (AUTO) 77.6 % (42-75); PLATELET COUNT 160 X10'3 (140-440); RED BLOOD COUNT 4.44 X10'6 (4.70-6.10); RED CELL DISTRIBUTION WIDTH 18.5 % (11.5-14.5); WHITE BLOOD COUNT 6.6 X10'3 (4.5-11.0)
[2024-01-27] MEDS ORDERED: ROSU40TA22 PO (07:51)
[2024-01-27] MEDS ORDERED: EZET10TA48 PO (07:51)
[2024-01-27] MEDS ORDERED: CHOL100025 PO (07:51)
[2024-01-27] MEDS ORDERED: UBID100C16 PO (07:51)
[2024-01-27] MEDS ORDERED: RIVA20TA PO (07:51)
[2024-01-27 07:53] LABS: ALBUMIN 3.4 G/DL (3.4-5.0); ANION GAP 10 (8-16); BLOOD UREA NITROGEN 26 MG/DL (7-18); BUN/CREATININE RATIO 18.3 (10.0-20.0); CALCIUM 8.3 MG/DL (8.5-10.1); CHLORIDE 105 MMOL/L (99-107); CREATININE 1.42 MG/DL (0.60-1.10); GLUCOSE 155 MG/DL (70-104); MAGNESIUM 2.2 MG/DL (1.5-2.4); POTASSIUM 4.3 MMOL/L (3.5-5.1); SODIUM 138 MMOL/L (135-145); TOTAL CARBON DIOXIDE 22.6 MMOL/L (24-32); eCRCL 64 ML/MIN; eGFR 51 ML/MIN
[2024-01-27] MEDS: fentaNYL/PF 50MCG/1 ML 2ML syringe IV ONE (08:29)
[2024-01-27] MEDS: MIDAZolam 1mg/ml 10ml vial IV ONE (08:29)
[2024-01-27] MEDS: normal saline 1000ml 1,000 ML IV SCH (08:29)
[2024-01-27] MEDS: rivaroxaban 20mg tablet PO SCH (09:10)
[2024-01-27] MEDS ORDERED: rivaroxaban 20mg tablet PO SCH (09:15)
[2024-01-27] MEDS: rivaroxaban 20mg tablet PO ONE (09:22)
== END 2024-01-27 11:45 | disposition home or self-care (01) ==
LOC: SSTAY O 06:36
PROVIDERS: ATTEND Internal Medicine Cardiovascular Disease
DX: I48.0 Paroxysmal atrial fibrillation (principal); E11.9 Type 2 diabetes mellitus without complications; I25.10 Atherosclerotic heart disease of native coronary artery without angina pectoris; E78.5 Hyperlipidemia, unspecified; G43.909 Migraine, unspecified, not intractable, without status migrainosus; I48.4 Atypical atrial flutter; I42.9 Cardiomyopathy, unspecified; I25.2 Old myocardial infarction; Z79.01 Long term (current) use of anticoagulants; Z79.899 Other long term (current) drug therapy; Z98.890 Other specified postprocedural states; Z83.3 Family history of diabetes mellitus; Z82.49 Family history of ischemic heart disease and other diseases of the circulatory system
CPT/HCPCS: 36415; 80048; 83735; 85025; 85610; 92960; 93005; J2250; J3010; J7030; A4620

== ENCOUNTER 2025-07-18 10:52 | Inpatient (IN) | payer BC ==
[~2025-07-18] VITALS: Ht 185.4 cm; Wt 98.2 kg
[~2025-07-18 10:52] MED LIST changes: -APIX5TAB3 PO; -ATOR40TA PO; +CHOL100025 PO; -CYAN100085 SL; +EZET10TA48 PO; -FERR1TAB21 PO; -GLIM2TAB6 PO; -LYR75C PO; -PER5325T PO; +RIVA20TA PO; +ROSU40TA89 PO; +UBID100C16 PO
[2025-07-18 11:31] LABS: MEAN PLATELET VOLUME 8.2 FL (7.4-10.4); RED CELL DISTRIBUTION WIDTH 16.5 % (11.5-14.5)
--- NOTE | 2025-07-18 11:43 | Physician Documentation ---
History of Present Illness ~ Chief Complaint: See Chief Complaint Stated Complaint: LIGHT HEADED Time Seen by MD: 16:03 Source: patient Mode of Arrival: POV Exam Limitations: no limitations HPI This is a 60-year-old male with history of CAD who presents with upper epigastric discomfort and increased shortness of breath, patient reports that his plant physiologist directed him to the emergency department due to concern of symptoms being cardiac origin. Patient reports no chest pain. He was admitted to [facility] on Jun and the plan was for cardiac stent placement but they wanted to transfer him to [place] to have it done. He spoke with his Earth Science Teacher (Dr. Newman) and the plan was to follow-up outpatient. The plan was for admission and cardiac stent placement this past Tuesday, but he had issues with his insurance and could not be admitted. He contacted Dr. Newman today when his symptoms started and he was told that he should come to the ED for evaluation and, if admitted, plan would be for stent placement tomorrow. Medication Reconciliation Allergies: Coded Allergies: No Known Allergies (Unverified , 07/18/25) Scheduled Allopurinol (Allopurinol), 1 TAB PO DAILY, (Reported) Amiodarone HCl* (Amiodarone HCl*), 1 TABLET PO BID, (Reported) Cholecalciferol (Vitamin D), 5,000 UNIT PO DAILY, (Reported) Empagliflozin (Jardiance), 1 TAB PO DAILY, (Reported) Ezetimibe (Ezetimibe), 1 TAB PO DAILY, (Reported) Furosemide 40 MG (Lasix), 1 TAB PO DAILY, (Reported) Metoprolol Tartrate* (Lopressor tablet*), 2 TAB PO QPM, (Reported) Potassium Chloride (Potassium Chloride), 1 TAB PO DAILY, (Reported) Rivaroxaban (Xarelto), 1 TAB PO DAILY, (Reported) Rosuvastatin Calcium (Rosuvastatin Calcium), 1 TAB PO DAILY, (Reported) Semaglutide (Ozempic), 1 MG SQ Q7D, (Reported) Ubidecarenone (Coq-10), 300 MG PO DAILY, (Reported) Past Medical History Past Medical History: Coronary Artery Disease Review of Systems ROS As stated above in the HPI, otherwise all systems are reviewed and negative. Physical Exam Vital Signs: Temperature: 98.4, Source: Temporal, Heart Rate: 82, Respiratory Rate: 16, BP: 124/76, Pulse Oximetry: 100, Weight: 98.180 Oxygen Flow Rate: 0 Physical Exam VITALS: Reviewed and as above. GENERAL: Alert, nontoxic appearing, no apparent distress. HEENT: RESPIRATORY: No increased work of breathing, no respiratory distress, speaking in full clear sentences CHEST: CV: BACK: GI: MUSCULOSKELETAL: SKIN: NEURO: PSYCH: Progress Results/Orders Results/Orders Orders - KATHARINA JENNINGS MD Chest,Single View (07/18/25 ) Monitor (07/18/25 11:20) Saline Lock (07/18/25 11:20) Oxygen (07/18/25 11:20) Heart Healthy Diet (07/19/25 Breakfast) Completed Orders - KATHARINA JENNINGS MD Chest,Single View (07/18/25 ) Cbc/Diff (07/18/25 11:20) BMP (07/18/25 11:20) PBNP (07/18/25 11:20) Electrocardiogram (07/18/25 11:20) Hs Troponin I W Calculations (07/18/25 11:20) Hs Troponin I W Calculations (07/18/25 13:20) Hs Troponin I W Calculations (07/18/25 14:20) Vital Signs 07/18/25 07/18/25 07/18/25 07/18/25 11:16 14:45 14:53 16:02 Temp 98.4 Pulse 82 77 73 Resp 16 16 16 16 B/P (MAP) 124/76 128/80 (96) 119/71 (87) Pulse Ox 100 98 98 O2 Flow Rate 0 0 07/18/25 18:02 Pulse 81 Resp 18 B/P (MAP) 129/84 (99) Pulse Ox 100 O2 Flow Rate 0 Laboratory Tests Test 07/18/25 11:15 07/18/25 14:42 07/18/25 15:45 White Blood Count 7.4 Red Blood Count 4.25 L Hemoglobin 14.2 Hematocrit 41.3 L Mean Corpuscular Volume 97.1 Mean Corpuscular Hemoglobin 33.5 H Mean Corpuscular Hemoglobin Concent 34.5 Red Cell Distribution Width 16.5 H Platelet Count 191 Mean Platelet Volume 8.2 Neutrophils (%) (Auto) 79.6 H Lymphocytes (%) (Auto) 12.4 L Monocytes (%) (Auto) 6.5 Eosinophils (%) (Auto) 1.0 Basophils (%) (Auto) 0.5 Neutrophils # (Auto) 5.9 Lymphocytes # (Auto) 0.9 L Monocytes # (Auto) 0.5 Eosinophils # (Auto) 0.1 Basophils # (Auto) 0.0 CBC Comment Sodium Level 139 Potassium Level 4.3 Chloride Level 104 Carbon Dioxide Level 26.5 Anion Gap 9 Blood Urea Nitrogen 32 H Creatinine 1.43 H Estimated GFR/1.73 m2 50 BUN/Creatinine Ratio 22.4 H Glucose Level 210 H Calcium Level 8.7 Troponin I High Sensitivity 27 30 32 Pro-B-Type Natriuretic Peptide 1962 H Albumin 3.5 Chemistry Comments Troponin I High Sens Percent Delta 11 6 Troponin I Hi Sens Absolute Change 3 2 EKG/XRAY/CT/US/VASC/MRI EKG : Intepreting Monitor?: Yes EKG Rate: 83 EKG Blocks: none [place]: normal Hypertrophy: none Additional Comment As interpreted by me Chest X-Ray : Interpreted By: self Lungs: normal Mediastinum: normal Ribs/Bones: normal Abdomen: normal Impression: no acute disease Medical Decision Making Findings MSE performed in triage and patient returned to ED lobby by nursing staff to await available ED room Differential Dx:Considerations: Include: angina, aortic dissection, chest wall pain, CHF, costochondritis, myocardial infarction, pericarditis, pneumonia, pneumothorax, pulmonary embolus Additional Information While here in the ED, he remained hemodynamically normal with ABC's intact and in NAD. He is afebrile and nontoxic. I reviewed his EKG and it shows NSR with a rate of 83 and without signs suggestive of acute myocardial injury or ischemia. Troponin normal. Lytes are unremarkable. He spoke with his Earth Science Teacher and the plan was to have him admitted on Tuesday and place a cardiac stent. He spoke with his Earth Science Teacher today and informed that if he came to the ED and was admitted, they would take him to the liaison inspection laboratory assistant for stent placement tomorrow. He will be admitted for Cardiology evaluation. Departure Disposition: ADMITTED INPATIENT Admitted to Inpatient Unit: yes, to hospitalist Admission Level of Care: Med/Surg with Tele Impression: Primary Impression: Chest pain Condition: Stable Referrals: NO PRIMARY CARE PROVIDER (PCP) Signature Scribe Signature: N/A Attestation: N/A VANDA TOBIAS Jul 18, 2025 11:42 KATHARINA JENNINGS MD Jul 18, 2025 17:25
[2025-07-18 11:46] LABS: CREATININE 1.43 MG/DL (0.60-1.10); PRO BRAIN NATRIURETIC PEPTIDE 1962 PG/ML (0-125); TOTAL CARBON DIOXIDE 26.5 MMOL/L (24-32); eCRCL 61 ML/MIN; eGFR 50 ML/MIN
--- NOTE | 2025-07-18 11:50 | RADIOLOGY REPORT ---
EXAM: DI CHEST,SINGLE VIEW Indication: CP Technique: Single frontal view of the chest was obtained Comparison: None FINDINGS: Lines and Tubes: None Lungs: No focal consolidation. Pleura: No effusion. No pneumothorax. Cardiomediastinal contours: Unremarkable. Atherosclerotic vascular calcifications of the thoracic aorta are noted. Bones: No acute osseous abnormality. IMPRESSION: No acute cardiopulmonary disease.
--- NOTE | 2025-07-18 13:21 | ELECTROCARDIOGRAPH REPORT ---
[facility] Test Date: 2025-07-18 Test Time: 11:13:47 Pat Name: RACHELE KENDALL Department: EMERGENCY ROOM Room: Gender: M [employer] Lead: DAVION : 1965 Requested By: KATHARINA JENNINGS Order Number: [id number] Reading MD: Measurements Intervals [place] Rate: 83 P: 62 DC: 219 QRS: 23 QRSD: 102 T: 97 QT: 432 QTc: 508 Interpretive Statements Sinus rhythm Borderline prolonged DC interval Probable anterior infarct, old Prolonged QT interval Please click the below link to view image of tracing.
--- NOTE | 2025-07-18 17:52 | HISTORY AND PHYSICAL ---
History & Physical Providers to Chief complaint, dizziness, coronary artery disease, need coronary artery disease stent placement ~ History of Present Illness Reason for Admit\Complaint: As above History of Present Illness This is a 60-year-old male with history of CAD, who recently 10 days ago had extensive evaluation by thermal engineer at [facility], including cardiac on Xarelto at home, did not take Xarelto today, history of gout, diastolic CHF in exacerbation ejection fraction unknown, history of chronic kidney disease, on amiodarone at home, history of diabetes mellitus type 2 recent hemoglobin A1c was six 0.9, presented today to emergency department chief complaint dizziness as and patient says that according to Cardiology he needs to place coronary stent; in addition this is the patient who presents with upper epigastric discomfort and increased shortness of breath, patient reports that his thermal engineer directed him to the emergency department due to concern of symptoms being cardiac origin. Patient reports no chest pain. He was admitted to [facility] on Jun and the plan was for cardiac stent placement but they wanted to transfer him to [place] to have it done. He spoke with his Director Market Intelligence (Dr. Newman) and the plan was to follow-up outpatient. The plan was for admission and cardiac stent placement this past Tuesday, but he had issues with his insurance and could not be admitted. He contacted Dr. Newman today when his symptoms started and he was told that he should come to the ED for evaluation and, if admitted, plan would be for stent placement tomorrow. Emergency department he was evaluated by medical provider and after consultation with thermal engineer, decision was made to admit patient for further evaluation and treatment for possible cardiac catheterization and stent placement in the morning. No additional complaint or concern Allergies: Coded Allergies: No Known Allergies (Unverified , 07/18/25) Active prescriptions I reviewed reconciled Home Medications Home Medications Active Reported Coq-10 (Ubidecarenone) 100 Mg Capsule 300 Mg PO DAILY Vitamin D (Cholecalciferol) 1,000 Unit Tablet 5,000 Unit PO DAILY 30 Days Ezetimibe 10 Mg Tablet 1 Tab PO DAILY Xarelto (Rivaroxaban) 20 Mg Tablet 1 Tab PO DAILY Rosuvastatin Calcium 40 Mg Tablet 1 Tab PO DAILY Ozempic (Semaglutide) 1 Mg/0.75 Ml Pen.injctr 1 Mg SQ Q7D Jardiance (Empagliflozin) 25 Mg Tablet 1 Tab PO DAILY Allopurinol 300 Mg Tablet 1 Tab PO DAILY Lasix (Furosemide) 40 Mg Tablet 1 Tab PO DAILY Potassium Chloride 20 Meq Tablet.er 1 Tab PO DAILY Amiodarone HCl* (Amiodarone HCl) 200 Mg Tablet 1 Tablet PO BID Lopressor tablet* (Metoprolol Tartrate) 25 Mg Tablet 2 Tab PO QPM Past Medical History Past Medical History As in H PI Past Surgical History Surgical History Comment As in HPI Family History Family History: Family history was reviewed; no changes noted. Past Social History Social History Comment Deny illicit drug abuse tobacco alcohol use live with the family good social support Health Maintenance Health Maintenance Noncontributory ROS ROS Constitutional : no fever , no chills, or weakness. No diaphoresis. Allergic/Immunologic, no lymphadenopathy, no hives, no skin eruptions. Eyes, no recent visual changes, no eye pain, no photophobia. Ears, nose, mouth, throat, no sore throat, no nosebleed, no ear pain. Cardiovascular, no palpitations, skipped beats, chest pain, no peripheral edema, Respiratory, no dyspnea, orthopnea, cough, hemoptysis, chest wall pain. Gastrointestinal, no abdominal pain, nausea, vomiting, constipation or diarrhea. : no dysuria, hematuria, pelvic pain, urethral d/c. Endocrine, no polyuria, polydipsia, recent unintentional weight gain or loss. Hematologic/Lymphatic, no petechiae, no enlarged lymph nodes, no bone pain. Integumentary, no rash, no skin lesions, Musculoskeletal, no muscle aches, or pain, no muscle cramps, no recent change in gait Neurological, positive for dizziness, no headache, no syncope, no paresthesia. Psychiatric, no delusions, visual hallucinations, or hearing hallucinations. ROS - in rest is as in HPI. Exam Vitals: Vital Signs Date Time Temp Pulse Resp B/P (MAP) Pulse Ox O2 Delivery O2 Flow Rate FiO2 07/18/25 16:02 73 16 119/71 (87) 98 07/18/25 14:53 0 07/18/25 11:16 98.4 Vital signs, stable ,afebrile. Pulse Oximetry reflects adequate oxygenation. BMI is twenty-eight, weight 98 kg General: well developed, well nourished. Awake , alert, and oriented x4, resting comfortably in the bed, in no acute distress . Skin: Warm, dry, no pallor, no rash or petechiae. HEENT: Atraumatic, normocephalic, EOMI, anicteric sclera B; pink conjunctiva; PERRLA, normal oropharynx, moist oral and nasal mucosa. Tympanic membrane , nose , throat clear. Neck: Trachea midline. Supple, full range of motion, no JVD, bruit , hepatojugular reflex , lymphadenopathy or masses, or other lesions Cardiac: Regular rhythm, regular rate no murmurs, rubs, or gallops. Normal S1 and S2, no S3 noticed. PMI is normal. Respiratory: Equal breath sounds bilaterally, no tachypnea; lungs clear to auscultation bilaterally, no wheezing ,rub or rales, or crackles. Chest wall is symmetric and without deformity. No signs of trauma. Chest wall is nontender. No signs of respiratory distress. Resonance is normal upon percussion bilaterally. Gastrointestinal: Abdomen symmetric, non-distended, soft, non-tender, normal bowel sounds x4 quadrant, normoactive, no hepatosplenomegaly , no masses , no bruit, no flank pain bilaterally. No voluntary guarding, rebound, or rigidity. No tenderness to percussion. No pulsatile masses. Equal femoral pulses. No Ramírez's sign or McBurney point tenderness. Back; no CVA tenderness bilaterally, no deformities. Neck and back are without deformity as well. No tenderness noted on palpation of the spinous processes. Spinous processes are midline. Cervical, thoracic, and lumbar paraspinal muscles are not tender and are without spasm. : normal external genitalia, without lesions, swelling, masses or tenderness. Musculoskeletal: Extremities, normal range of motion, non-tender, muscle strength 5/5 x 4. Negative Homans signs bilaterally on lower extremity. Distal pulses full symmetrical, no clubbing, cyanosis , edema. Neurological: Speech is clear, alert, and oriented x 4. No motor or sensory deficit, deep tendon reflexes normal, cerebellar intact. Cranial nerves II-XII intact. Psych: Alert and or appropriate, normal affect. Vascular: Good distal pulses, which are equal x4; capillary refill less than 2 seconds. Lymphatic, no lymphadenopathy. Diagnostic Data Last Recorded Lab Results: 07/18/25 1115 07/18/25 1115 Advance Care Planning Advanced Care plannin - 30 Minutes Additional Plan Assessment Coronary artery disease, associated with the need for coronary artery stent placement, on Xarelto, amiodarone, at home Dizziness Diabetes mellitus type 2 fair control Acute kidney injury secondary to vasomotor nephropathy GFR 50 Diastolic CHF ejection fraction unknown in exacerbation Dyslipidemia Additional comorbidities, history of GERD, chronic kidney disease gout tachyarrhythmia Plan Serial troponin EKG IV fluids keep patient well hydrated euvolemic Director Market Intelligence is on the case, he may take patient tomorrow morning for cardiac catheterization Hyperglycemia sliding scale Additional lab work pending I reconciled home medications DVT gastropathy prophylaxis addressed Date of Service: Jul 18, 2025 Billing Provider: SHABANA HOBBS MD Common Visit Codes: [id number] INP/OBS CARE(HIGH) Secondary Visit Codes: [id number] CARE PLAN 30 MINUTES SHABANA HOBBS MD Jul 18, 2025 17:52
[2025-07-18] MEDS ORDERED: HYDROcodone/acetaminophen 5mg/325mg tablet PO PRN (18:15)
[2025-07-18] MEDS ORDERED: magnesium Cl slow-release 64mg tablet PO PRN (18:15)
[2025-07-18] MEDS ORDERED: magnesium hydroxide 30ml (MOM) UD suspension PO PRN (18:15)
[2025-07-18] MEDS ORDERED: potassium Cl 40MEQ/1/2NS 520ml 520 ML IV PRN (18:15)
[2025-07-18] MEDS ORDERED: acetaminophen 650mg rectal suppository RC PRN (18:15)
[2025-07-18] MEDS: normal saline 1000ml 1,000 ML IV SCH (18:15)
[2025-07-18] MEDS ORDERED: magnesium sulf-water 2g/50mL 50 ML IV PRN (18:15)
[2025-07-18] MEDS ORDERED: ondansetron/PF 4mg/2ml inj IV PRN (18:15)
[2025-07-18] MEDS ORDERED: magnesium sulf-water 4G/100mL 100 ML IV PRN (18:15)
[2025-07-18] MEDS ORDERED: potassium Cl 20 mEq SR tablet PO PRN ×2 (18:15)
[2025-07-18] MEDS ORDERED: dextrose 50%-water 50ml dispensing syringe IV PRN ×2 (18:20)
[2025-07-18] MEDS ORDERED: DEXTROSE 15 GM of carb/4 tabs (each vial/BOTTLE has 4 tablets) PO PRN ×2 (18:20)
[2025-07-18] MEDS ORDERED: glucagon, human recombinant 1mg kit SUBCUT PRN (18:20)
[2025-07-18] MEDS ORDERED: AMIO200T27 PO (18:46)
[2025-07-18] MEDS ORDERED: LOP12.5T PO (18:46)
[2025-07-18 19:01] LABS: APTT 31 SECONDS (22-32); INR 1.2 INR
[2025-07-18 19:15] LABS: PHOSPHORUS 2.4 MG/DL (2.3-4.5); PRO BRAIN NATRIURETIC PEPTIDE 2780.0 PG/ML (0-125)
[2025-07-18] MEDS: K and/or MAG REPLACEMENT MC SCH (20:00)
[2025-07-18] MEDS: docusate sod 100mg capsule PO SCH (20:00)
[2025-07-18] MEDS: insulin glargine (Lantus) pen - multi-dose SQ SCH (21:19)
[2025-07-18] MEDS: INSULIN LISPRO 100 UNIT/ML INSULN.PEN MULTI-DOSE SQ SCH (21:20)
[2025-07-18 22:51] LABS: LEUKOCYTE ESTERASE ,URINE NEGATIVE (Neg); NITRITES, URINE NEGATIVE (Neg); OCCULT BLOOD,URINE NEGATIVE (Neg)
[2025-07-18 23:02] LABS: UA COLLECTION TYPE NON-SPECIFIED
[2025-07-18 23:11] LABS: SQUAMOUS EPITHELIAL CELL,UR FEW /LPF (FEW)
[2025-07-19] VITALS (13 sets, daily range): BP systolic 104–131; BP diastolic 61–81; PULSE 72–92; RESP 14–20; TEMP 97–98.4; O2SAT 92–100
[2025-07-19] MEDS: mag hydrox/Alum hydrox/simeth 30ml oral suspension PO PRN (02:17)
[2025-07-19 02:59] LABS: MEAN PLATELET VOLUME 8.3 FL (7.4-10.4); RED CELL DISTRIBUTION WIDTH 16.2 % (11.5-14.5)
[2025-07-19 03:15] LABS: CHOL/HDL RATIO 3.4 (0.00-4.99); CREATININE 1.24 MG/DL (0.60-1.10); LDL CHOLESTEROL 37 MG/DL (50-100); TOTAL CARBON DIOXIDE 23.3 MMOL/L (24-32); eCRCL 70 ML/MIN; eGFR 59 ML/MIN
[2025-07-19] MEDS: pantoprazole 40mg Tablet.DR PO SCH (09:05)
[2025-07-19] MEDS: mag hydrox/Alum hydrox/simeth 30ml oral suspension PO ONE (11:02)
[2025-07-19] MEDS ORDERED: verapamil 2.5 mg/ml inj IV ONE (11:15)
[2025-07-19] MEDS ORDERED: midazolam 1 mg/ML 2ml injection ONE (11:15)
[2025-07-19] MEDS ORDERED: LIDOcaine 1% (10mg/ml) 2ml vial ONE (11:15)
[2025-07-19] MEDS ORDERED: fentaNYL/PF 50MCG/1 ML 2ML syringe ONE (11:15)
[2025-07-19] MEDS ORDERED: iohexol 350 MG/ML 50ML vial IV ONE (11:16)
[2025-07-19] MEDS ORDERED: heparin 1,000unit/ml 10ml vial 10 ML ONE (11:16)
[2025-07-19] MEDS ORDERED: nitroGLYCERIN 500mcg/5mL D5W 0 ML IV ONE (11:17)
[2025-07-19] MEDS ORDERED: heparin 1,000 UNITS/NS 500ml 500 ML ONE (11:21)
[2025-07-19] MEDS ORDERED: METO25TA6 PO (11:33)
[2025-07-19] MEDS ORDERED: NITR0.4T51 SL (11:33)
[2025-07-19] MEDS ORDERED: LOSA-415 PO (11:33)
[2025-07-19] MEDS ORDERED: GABA-530 PO (11:33)
[2025-07-19] MEDS ORDERED: LIDOcaine 1% 30ml preserv. free vial ONE (11:45)
--- NOTE | 2025-07-19 12:04 | PROGRESS NOTE ---
Daily Progress Note Providers to CC ~ today had cardiac catheterization, no stent placement, complaint of minimal pain right groin Central Line/PICC still needed: No Amin-Non Protocol Amin Indications Met/Not Met: F/C Indications Not Met Antibiotic Timeout Antibiotic Ordered?: No MRSA Education MRSA Education Provided to pt: No Subjective As above Objective Vital Signs Date Time Temp Pulse Resp B/P (MAP) Pulse Ox O2 Delivery O2 Flow Rate FiO2 07/19/25 11:33 91 07/19/25 10:30 98.0 17 122/73 (89) 97 Room Air 07/18/25 18:02 0 Vital signs, stable ,afebrile. Pulse Oximetry reflects adequate oxygenation. General: well developed, well nourished. Awake , alert, and oriented x4, resting comfortably in the bed, in no acute distress . Skin: Warm, dry, no pallor, no rash or petechiae. HEENT: Atraumatic, normocephalic, EOMI, anicteric sclera B; pink conjunctiva; PERRLA, normal oropharynx, moist oral and nasal mucosa. Tympanic membrane , nose , throat clear. Neck: Trachea midline. Supple, full range of motion, no JVD, bruit , hepatojugular reflex , lymphadenopathy or masses, or other lesions Cardiac: Regular rhythm, regular rate no murmurs, rubs, or gallops. Normal S1 and S2, no S3 noticed. PMI is normal. Respiratory: Equal breath sounds bilaterally, no tachypnea; lungs clear to auscultation bilaterally, no wheezing ,rub or rales, or crackles. Chest wall is symmetric and without deformity. No signs of trauma. Chest wall is nontender. No signs of respiratory distress. Resonance is normal upon percussion bilaterally. Gastrointestinal: Abdomen symmetric, non-distended, soft, non-tender, normal bowel sounds x4 quadrant, normoactive, no hepatosplenomegaly , no masses , no bruit, no flank pain bilaterally. No voluntary guarding, rebound, or rigidity. No tenderness to percussion. No pulsatile masses. Equal femoral pulses. No Ramírez's sign or McBurney point tenderness. Back; no CVA tenderness bilaterally, no deformities. Neck and back are without deformity as well. No tenderness noted on palpation of the spinous processes. Spinous processes are midline. Cervical, thoracic, and lumbar paraspinal muscles are not tender and are without spasm. : normal external genitalia, without lesions, swelling, masses or tenderness. Musculoskeletal: Extremities, normal range of motion, non-tender, muscle strength 5/5 x 4. Negative Homans signs bilaterally on lower extremity. Distal pulses full symmetrical, no clubbing, cyanosis , edema. Locally, right groin no hematoma, minimal tender to palpation, no bleeding dressing clean dry intact Neurological: Speech is clear, alert, and oriented x 4. No motor or sensory deficit, deep tendon reflexes normal, cerebellar intact. Cranial nerves II-XII intact. Psych: Alert and or appropriate, normal affect. Vascular: Good distal pulses, which are equal x4; capillary refill less than 2 seconds. Lymphatic, no lymphadenopathy. Result Diagram: 07/19/25 0241 07/19/25 0241 Coagulation Studies Laboratory Tests Test 07/18/25 18:34 Prothrombin Time 12.0 SECONDS (9.0-12.0) INR International Normalized Ratio 1.2 INR Activated Partial Thromboplast Time 31 SECONDS (22-32) Coagulation Comments Problem\Assessment\Plan Assessment Status post cardiac catheterization, today, no stent placed Coronary artery disease, associated with the possible need for coronary artery stent placement, on Xarelto, amiodarone, at home Dizziness Diabetes mellitus type 2 fair control Acute kidney injury secondary to vasomotor nephropathy GFR 50 Diastolic CHF ejection fraction unknown in exacerbation Dyslipidemia Additional comorbidities, history of GERD, chronic kidney disease gout tachyarrhythmia Plan Serial troponin EKG IV fluids keep patient well hydrated euvolemic Burnt Lime Drawer is on the case, appreciate assistance and expertise Hyperglycemia sliding scale Additional lab work pending I reconciled home medications DVT gastropathy prophylaxis addressed Sepsis Screening Reassessment Date: Jul 19, 2025 Date of Service: Jul 19, 2025 Billing Provider: SHABANA HOBBS MD Common Visit Codes: [id number] INP/OBS CARE(HIGH) SHABANA HOBBS MD Jul 19, 2025 12:04
[2025-07-19] MEDS: normal saline 1000ml 1,000 ML IV SCH ×2 (13:00→23:36)
[2025-07-20] VITALS (8 sets, daily range): BP systolic 96–118; BP diastolic 59–77; PULSE 65–79; RESP 12–19; TEMP 97.2–97.9; O2SAT 78–99
--- NOTE | 2025-07-20 06:15 | CARDIOLOGY REPORT ---
DATE OF SERVICE: 07/19/2025 DICTATING PHYSICIAN: MILLICENT MICHELLE DO CARDIAC CATHETERIZATION REPORT ASSISTANT SHIFT SUPERVISOR: Millicent Michelle DO CLINICAL HISTORY: This 60-year-old man has had recent symptoms compatable with congestive heart failure. He has also had vague chest pain with minimal activities. Cardiac catheterization at [facility] about 1 week ago demonstrated occlusive disease in small branch vessels of the circumflex (not amenable to PCI), a long, chronic occlusion of the mid right coronary and high- grade disease in the mid LAD that involved the main stem vessel and the principal diagonal. The appearance of his vessels was generally "ratty" and very atheromatous. There was some discussion about surgery and possible transfer out of town for management of this problem. I have personally seen these films and thought that he was a reasonable candidate for bifurcation PCI involving the mid LAD. PROCEDURES PERFORMED: * Left heart catheterization. * Left ventriculography. * Selective coronary arteriography. * Percutaneous arteriotomy closure (Perclose). * 45 minutes conscious sedation with supervision. DESCRIPTION OF PROCEDURE: The patient was sedated with fentanyl and Versed. He was then prepared and draped in the usual manner. The right inguinal area was infiltrated with 1% lidocaine using a micropuncture set under Seldinger technique, a 7-Nauruan sheath was placed in the common femoral artery. 3000 units of heparin were given. Left heart catheterization and left ventriculography were performed using a 6-Nauruan pigtail catheter. Coronary arteriography was performed using 6-Nauruan #4 left and right Berta catheters. The arterial access site was successfully Perclosed. HEMODYNAMIC DATA: The left ventricular end diastolic pressure was 24 mmHg. There was no more than a 5 mm gradient across the aortic valve, which was sclerotic. LEFT VENTRICULOGRAM: The left ventriculogram was technically satisfactory. The ventricle was markedly dilated. The entire inferoposterior surface was akinetic and the remaining wall motion was markedly hypokinetic. The ejection fraction was estimated to not be better than 15%. There was heavy calcification/stenting in the right coronary artery and at least moderate calcification involving the left coronary artery. CORONARY ARTERIOGRAPHY: The patient appeared to have a right dominant system. LEFT MAIN CORONARY ARTERY: The left main was a large unobstructed vessel bifurcating into the left anterior descending and circumflex coronary arteries. LEFT ANTERIOR DESCENDING CORONARY ARTERY: The LAD was overall a small to medium-sized vessel with most of the main stem vessel being small in size and diffusely atherosclerotic. There was a medium to large diagonal branch and a small caliber second diagonal, both branches taking their origin from the mid LAD. On either side of the first diagonal, there was about a 70% to 90% stenosis and the diagonal origin itself appeared to be diffusely diseased. CIRCUMFLEX CORONARY ARTERY: The circumflex was a large main stem vessel. The first marginal was very tiny in size and appeared to have a tight stenosis at its origin. There was an inferior obtuse marginal that was very small in caliber and there was a small posterolateral branch narrowed by 70% to 90% proximally. The sinoatrial node artery came off the distal end of the circumflex coronary artery. RIGHT CORONARY ARTERY: The right coronary artery appeared to be a large,calcified, previously stented vessel that was totally occluded in its mid segment. There was collateralization of the part of the distal posterior descending branch by way of an acute marginal/RV branch. CONCLUSIONS: * Severe atheromatous coronary artery disease with generalized plaquing everywhere and generally speaking small vessels. * The specific lesions are as follows: A) 100% old mid right coronary occlusion. B) 80% to 90% stenosis of the mid LAD overlapping a medium to large diagonal branch which itself appeared to be diffusely atherosclerotic. C) High-grade stenoses at the origin of tiny branch vessels involving the circumflex coronary artery. * Markedly dilated left ventricle with very poor systolic function and an LVEF estimated to be not greater than 15%. PLAN: This patient is not a good candidate for either PCI or CABG. However, he probably ought to be considered for cardiac transplant, but one factor militating against that is the fact that he is a diabetic. Nevertheless, a transplant consult would seem to be the next best alternative. If he is not regarded as a satisfactory transplant candidate, he could have an attempted intervention on the complex bifurcation lesion in the mid LAD, but I would not suggest that it should be done without the use of Impella. He also needs an ICD before discharge. MILLICENT MICHELLE DO TID: [id number] RECEIPT: [id number] DORETHA/SHYANN LANDEROS
[2025-07-20] MEDS: EMPAGLIFLOZIN 25 MG TABLET PO SCH (08:00)
[2025-07-20 08:08] LABS: MEAN PLATELET VOLUME 7.9 FL (7.4-10.4); RED CELL DISTRIBUTION WIDTH 16.5 % (11.5-14.5)
[2025-07-20 08:44] LABS: CREATININE 1.26 MG/DL (0.60-1.10); TOTAL CARBON DIOXIDE 26.2 MMOL/L (24-32); eCRCL 69 ML/MIN; eGFR 58 ML/MIN
[2025-07-20] MEDS: potassium Cl 20 mEq SR tablet PO SCH (09:08)
[2025-07-20] MEDS: metoprolol tartrate 12.5mg (1/2 tablet) PO SCH (09:09)
[2025-07-20] MEDS: cholecalciferol (vitamin D3) 1,000 unit (25mcg) tablet PO SCH (09:11)
--- NOTE | 2025-07-20 12:59 | PROGRESS NOTE ---
Progress Note Cardiology Providers to CC ~ Subjective Subjective No CP Objective Result Diagram: 07/20/2572507/20/25725 Objective I discussed the findings of yesterday's cardiac cath. He has a clear understanding that I think his best option is a transplant if he is a candidate. The only concern about candidacy is his diabetes. i also told him that he needs an ICD before discharge. Coagulation Studies Laboratory Tests Test 07/18/25 18:34 Prothrombin Time 12.0 SECONDS (9.0-12.0) INR International Normalized Ratio 1.2 INR Activated Partial Thromboplast Time 31 SECONDS (22-32) Coagulation Comments Problem\Assessment\Plan Additional Plan I will speak to my preferred transplant MD on Tuesday morning. If he is a candidate, he should be transferred to [place] If not a candidate, he will have an Ipella supported LAD PCI. In either case, we will place an ICD before discharge. MILLICENT MICHELLE DO Jul 20, 2025 12:59
--- NOTE | 2025-07-20 17:10 | PROGRESS NOTE ---
Daily Progress Note Providers to CC Feels fine today no new complaint resting comfortably in the bed ~ Central Line/PICC still needed: No Amin-Non Protocol Amin Indications Met/Not Met: F/C Indications Not Met Antibiotic Timeout Antibiotic Ordered?: No MRSA Education MRSA Education Provided to pt: No Subjective As above Objective Vital Signs Date Time Temp Pulse Resp B/P (MAP) Pulse Ox O2 Delivery O2 Flow Rate FiO2 07/20/25 11:00 97.6 78 16 113/67 (82) 78 Room Air 07/20/25 08:15 0.0 Vital signs, stable ,afebrile. Pulse Oximetry reflects adequate oxygenation. General: well developed, well nourished. Awake , alert, and oriented x4, resting comfortably in the bed, in no acute distress . Skin: Warm, dry, no pallor, no rash or petechiae. HEENT: Atraumatic, normocephalic, EOMI, anicteric sclera B; pink conjunctiva; PERRLA, normal oropharynx, moist oral and nasal mucosa. Tympanic membrane , nose , throat clear. Neck: Trachea midline. Supple, full range of motion, no JVD, bruit , hepatojugular reflex , lymphadenopathy or masses, or other lesions Cardiac: Regular rhythm, regular rate no murmurs, rubs, or gallops. Normal S1 and S2, no S3 noticed. PMI is normal. Respiratory: Equal breath sounds bilaterally, no tachypnea; lungs clear to auscultation bilaterally, no wheezing ,rub or rales, or crackles. Chest wall is symmetric and without deformity. No signs of trauma. Chest wall is nontender. No signs of respiratory distress. Resonance is normal upon percussion bilaterally. Gastrointestinal: Abdomen symmetric, non-distended, soft, non-tender, normal bowel sounds x4 quadrant, normoactive, no hepatosplenomegaly , no masses , no bruit, no flank pain bilaterally. No voluntary guarding, rebound, or rigidity. No tenderness to percussion. No pulsatile masses. Equal femoral pulses. No Ramírez's sign or McBurney point tenderness. Back; no CVA tenderness bilaterally, no deformities. Neck and back are without deformity as well. No tenderness noted on palpation of the spinous processes. Spinous processes are midline. Cervical, thoracic, and lumbar paraspinal muscles are not tender and are without spasm. : normal external genitalia, without lesions, swelling, masses or tenderness. Musculoskeletal: Extremities, normal range of motion, non-tender, muscle strength 5/5 x 4. Negative Homans signs bilaterally on lower extremity. Distal pulses full symmetrical, no clubbing, cyanosis , edema. Neurological: Speech is clear, alert, and oriented x 4. No motor or sensory deficit, deep tendon reflexes normal, cerebellar intact. Cranial nerves II-XII intact. Psych: Alert and or appropriate, normal affect. Vascular: Good distal pulses, which are equal x4; capillary refill less than 2 seconds. Lymphatic, no lymphadenopathy. Result Diagram: 07/20/25 0726 07/20/25 07 Coagulation Studies Laboratory Tests Test 07/18/25 18:34 Prothrombin Time 12.0 SECONDS (9.0-12.0) INR International Normalized Ratio 1.2 INR Activated Partial Thromboplast Time 31 SECONDS (22-32) Coagulation Comments Problem\Assessment\Plan Assessment Status post cardiac catheterization, today, no stent placed Severe Coronary artery disease, not amenable to stent or CABG, on Xarelto, amiodarone, at home; Dizziness Diabetes mellitus type 2 fair control Acute kidney injury secondary to vasomotor nephropathy GFR 50 Systolic CHF with reduced, around 15%, ejection fraction in exacerbation Dyslipidemia Additional comorbidities, history of GERD, chronic kidney disease gout tachyarrhythmia Plan Awaiting procedure ICD placement IV fluids keep patient well hydrated euvolemic Director [employer] is on the case, appreciate assistance and expertise, recommendation to be implemented Hyperglycemia sliding scale Additional lab work pending I reconciled home medications DVT gastropathy prophylaxis addressed Sepsis Screening Reassessment Date: Jul 20, 2025 Date of Service: Jul 20, 2025 Billing Provider: SHABANA HOBBS MD Common Visit Codes: [id number] INP/OBS CARE(HIGH) SHABANA HOBBS MD Jul 20, 2025 17:10
[2025-07-21] VITALS (8 sets, daily range): BP systolic 94–109; BP diastolic 60–76; PULSE 70–83; RESP 16–20; TEMP 97.5–98.7; O2SAT 97–99
[2025-07-21 06:29] LABS: MEAN PLATELET VOLUME 7.8 FL (7.4-10.4); RED CELL DISTRIBUTION WIDTH 16.3 % (11.5-14.5)
[2025-07-21 07:17] LABS: CREATININE 1.42 MG/DL (0.60-1.10); TOTAL CARBON DIOXIDE 26.1 MMOL/L (24-32); eCRCL 61 ML/MIN; eGFR 51 ML/MIN
--- NOTE | 2025-07-21 14:31 | PROGRESS NOTE ---
Progress Note Cardiology Providers to CC ~ Subjective Subjective Feels reasonably well. Objective Result Diagram: 07/21/25 0609 07/21/25 06 Objective ICD tomorrow a lead to allow use of higher dose metoprolol. Metoprolol has been weaned down earlier this year because of bradycardia. Will call Dr. Maloney re transplant prospect at ~ 0900. Based on my own research, I think he will be a candidate. If he is not deemed a candidate for transplant, he will have an LAD PCI with Impeela support. Coagulation Studies Laboratory Tests Test 07/18/25 18:34 Prothrombin Time 12.0 SECONDS (9.0-12.0) INR International Normalized Ratio 1.2 INR Activated Partial Thromboplast Time 31 SECONDS (22-32) Coagulation Comments MILLICENT MICHELLE DO Jul 21, 2025 14:31
--- NOTE | 2025-07-21 17:07 | PROGRESS NOTE ---
Daily Progress Note Providers to CC No new complaint today, resting comfortably in the bed Central Line/PICC still needed: N\A Amin-Non Protocol Amin Indications Met/Not Met: F/C Indications Met Antibiotic Timeout Antibiotic Ordered?: Yes MRSA Education MRSA Education Provided to pt: Yes Subjective As above Objective Vital Signs Date Time Temp Pulse Resp B/P (MAP) Pulse Ox O2 Delivery O2 Flow Rate FiO2 07/21/25 15:00 98.7 75 16 95/68 (77) 98 Room Air 07/21/25 08:00 0.0 07/20/25 20:00 21 Result Diagram: 07/21/25 0609 07/21/25 0609 Vital signs, stable ,afebrile. Pulse Oximetry reflects adequate oxygenation. General: well developed, well nourished. Awake , alert, and oriented x4, resting comfortably in the bed, in no acute distress . Skin: Warm, dry, no pallor, no rash or petechiae. HEENT: Atraumatic, normocephalic, EOMI, anicteric sclera B; pink conjunctiva; PERRLA, normal oropharynx, moist oral and nasal mucosa. Tympanic membrane , nose , throat clear. Neck: Trachea midline. Supple, full range of motion, no JVD, bruit , hepatojugular reflex , lymphadenopathy or masses, or other lesions Cardiac: Regular rhythm, regular rate no murmurs, rubs, or gallops. Normal S1 and S2, no S3 noticed. PMI is normal. Respiratory: Equal breath sounds bilaterally, no tachypnea; lungs clear to auscultation bilaterally, no wheezing ,rub or rales, or crackles. Chest wall is symmetric and without deformity. No signs of trauma. Chest wall is nontender. No signs of respiratory distress. Resonance is normal upon percussion bilaterally. Gastrointestinal: Abdomen symmetric, non-distended, soft, non-tender, normal bowel sounds x4 quadrant, normoactive, no hepatosplenomegaly , no masses , no bruit, no flank pain bilaterally. No voluntary guarding, rebound, or rigidity. No tenderness to percussion. No pulsatile masses. Equal femoral pulses. No Ramírez's sign or McBurney point tenderness. Back; no CVA tenderness bilaterally, no deformities. Neck and back are without deformity as well. No tenderness noted on palpation of the spinous processes. Spinous processes are midline. Cervical, thoracic, and lumbar paraspinal muscles are not tender and are without spasm. : normal external genitalia, without lesions, swelling, masses or tenderness. Musculoskeletal: Extremities, normal range of motion, non-tender, muscle strength 5/5 x 4. Negative Homans signs bilaterally on lower extremity. Distal pulses full symmetrical, no clubbing, cyanosis , edema. Neurological: Speech is clear, alert, and oriented x 4. No motor or sensory deficit, deep tendon reflexes normal, cerebellar intact. Cranial nerves II-XII intact. Psych: Alert and or appropriate, normal affect. Vascular: Good distal pulses, which are equal x4; capillary refill less than 2 seconds. Lymphatic, no lymphadenopathy. Coagulation Studies Laboratory Tests Test 07/18/25 18:34 Prothrombin Time 12.0 SECONDS (9.0-12.0) INR International Normalized Ratio 1.2 INR Activated Partial Thromboplast Time 31 SECONDS (22-32) Coagulation Comments Problem\Assessment\Plan Assessment Status post cardiac catheterization, postprocedure day 2., no stent placed Severe Coronary artery disease, not amenable to stent or CABG, on Xarelto, amiodarone, at home; Dizziness Diabetes mellitus type 2 fair control Acute kidney injury secondary to vasomotor nephropathy GFR 50 Systolic CHF with reduced, around 15%, ejection fraction in exacerbation Dyslipidemia Additional comorbidities, history of GERD, chronic kidney disease gout tachyarrhythmia Plan Awaiting procedure ICD placement IV fluids keep patient well hydrated euvolemic Scheduled for ICD procedure tomorrow in the morning Instructional Technology Teacher is on the case, appreciate assistance and expertise, recommendation to be implemented Hyperglycemia sliding scale Additional lab work pending I reconciled home medications DVT gastropathy prophylaxis addressed Sepsis Screening Reassessment Date: Jul 21, 2025 Date of Service: Jul 21, 2025 Billing Provider: SHABANA HOBBS MD Common Visit Codes: [id number] INP/OBS CARE(HIGH) SHABANA HOBBS MD Jul 21, 2025 17:07
[2025-07-21] MEDS: loperamide 2mg capsule PO ONE (23:57)
[2025-07-22] VITALS (9 sets, daily range): BP systolic 104–123; BP diastolic 60–74; PULSE 69–85; RESP 12–22; TEMP 97.5–97.8; O2SAT 92–99
[2025-07-22] MEDS: loperamide 2mg capsule PO ONE (03:24)
[2025-07-22 06:59] LABS: MEAN PLATELET VOLUME 8.0 FL (7.4-10.4); RED CELL DISTRIBUTION WIDTH 16.2 % (11.5-14.5)
[2025-07-22] MEDS ORDERED: midazolam 1 mg/ML 2ml injection ONE ×3 (06:59→07:50)
[2025-07-22] MEDS ORDERED: LIDOcaine 1% W/epiNEPHrine 1:100,000 20ml vial ONE (06:59)
[2025-07-22] MEDS ORDERED: fentaNYL/PF 50MCG/1 ML 2ML syringe ONE ×2 (06:59→07:51)
[2025-07-22] MEDS ORDERED: vancomycin 1,000mg inj ONE (06:59)
[2025-07-22 07:44] LABS: CREATININE 1.38 MG/DL (0.60-1.10); TOTAL CARBON DIOXIDE 21.3 MMOL/L (24-32); eCRCL 63 ML/MIN; eGFR 52 ML/MIN
[2025-07-22] MEDS: ondansetron 4mg rapidly disintigrating tab PO PRN (09:05)
[2025-07-22] MEDS: HYDROcodone/acetaminophen 10/325mg tab PO PRN (09:06)
[2025-07-22] MEDS: normal saline 1000ml 1,000 ML IV SCH (09:50)
--- NOTE | 2025-07-22 11:19 | RADIOLOGY REPORT ---
EXAM: DI CHEST,SINGLE VIEW Indication: post procedure Technique: Single frontal view of the chest was obtained Comparison: DI CHEST,SINGLE VIEW on DOS: 07/18/25 FINDINGS: Lines and Tubes: Cardiac pacemaker projects over left chest wall. Lungs: No focal consolidation. Mild pulmonary vascular congestion. Pleura: No effusion. No pneumothorax. Cardiomediastinal contours: Cardiomegaly. Bones: No acute osseous abnormality. IMPRESSION: Cardiomegaly with mild pulmonary vascular congestion.
[2025-07-22] MEDS ORDERED: SPIR25TA PO (12:07)
[2025-07-22] MEDS ORDERED: HYDR-3965 PO (12:07)
[2025-07-22] MEDS ORDERED: ONDA-243 PO (12:08)
--- NOTE | 2025-07-22 18:46 | DISCHARGE SUMMARY ---
Discharge Summary Providers to CC Feels better today cleared by cardiology for discharge ~ Discharge Summary Assessment Coronary artery disease, on Xarelto, amiodarone, at home Severe atherosclerosis of coronary artery disease Status post cardiac catheterization Status post ICD implant today Systolic CHF in exacerbation ejection fraction 15% Dizziness Diabetes mellitus type 2 fair control Acute kidney injury secondary to vasomotor nephropathy GFR 50 Dyslipidemia Additional comorbidities, history of GERD, chronic kidney disease gout tachyarrhythmia Admission Diagnosis: CAD, DM Admission Diagnosis Comment: Coronary artery disease, on Xarelto, amiodarone, at home Severe atherosclerosis of coronary artery disease Status post cardiac catheterization Status post ICD implant today Systolic CHF in exacerbation ejection fraction 15% Dizziness Diabetes mellitus type 2 fair control Acute kidney injury secondary to vasomotor nephropathy GFR 50 Dyslipidemia Additional comorbidities, history of GERD, chronic kidney disease gout tachyarrhythmia Hospital Course DATE OF ADMISSION: July 18, 2025 DATE OF DISCHARGE: July 22, 2025 Discharge Diagnosis\Comment: Coronary artery disease, on Xarelto, amiodarone, at home Severe atherosclerosis of coronary artery disease Status post cardiac catheterization Status post ICD implant today Systolic CHF in exacerbation ejection fraction 15% Dizziness Diabetes mellitus type 2 fair control Acute kidney injury secondary to vasomotor nephropathy GFR 50 Dyslipidemia Additional comorbidities, history of GERD, chronic kidney disease gout tachyarrhythmia Operations\Procedures: Cardiac catheterization, ICD implantation Consultants: Cardiology Complications: Non Condition on DC: Stable Discharge Summary: This is a 60-year-old male with history of CAD, who recently 10 days ago had extensive evaluation by assembler equipment at [facility], including cardiac on Xarelto at home, did not take Xarelto today, history of gout, diastolic CHF in exacerbation ejection fraction unknown, history of chronic kidney disease, on amiodarone at home, history of diabetes mellitus type 2 recent hemoglobin A1c was six 0.9, presented today to emergency department chief complaint dizziness as and patient says that according to Cardiology he needs to place coronary stent; in addition this is the patient who presents with upper epigastric discomfort and increased shortness of breath, patient reports that his assembler equipment directed him to the emergency department due to concern of symptoms being cardiac origin. Patient reports no chest pain. He was admitted to [facility] on Jun and the plan was for cardiac stent placement but they wanted to transfer him to [place] to have it done. He spoke with his Recruiting Assistant (Dr. Newman) and the plan was to follow-up outpatient. The plan was for admission and cardiac stent placement this past Tuesday, but he had issues with his insurance and could not be admitted. He contacted Dr. Newman today when his symptoms started and he was told that he should come to the ED for evaluation and, if admitted, plan would be for stent placement tomorrow. Emergency department he was evaluated by medical provider and after consultation with assembler equipment, decision was made to admit patient for further evaluation and treatment for possible cardiac catheterization and stent placement in the morning. No additional complaint or concern. After admission patient was extensively evaluated treated including procedure cardiac catheterization, not amenable for stent placed, may need heart transplantation, today he is feeling better was cleared for discharge by assembler equipment, he will be discharged in stable condition, medication reconciled follow-up PCP and Cardiology in two days, today on physical exam Vital signs, stable ,afebrile. Pulse Oximetry reflects adequate oxygenation. General: well developed, well nourished. Awake , alert, and oriented x4, resting comfortably in the bed, in no acute distress . Skin: Warm, dry, no pallor, no rash or petechiae. HEENT: Atraumatic, normocephalic, EOMI, anicteric sclera B; pink conjunctiva; PERRLA, normal oropharynx, moist oral and nasal mucosa. Tympanic membrane , nose , throat clear. Neck: Trachea midline. Supple, full range of motion, no JVD, bruit , hepatojugular reflex , lymphadenopathy or masses, or other lesions Cardiac: Regular rhythm, regular rate no murmurs, rubs, or gallops. Normal S1 and S2, no S3 noticed. PMI is normal. Respiratory: Equal breath sounds bilaterally, no tachypnea; lungs clear to auscultation bilaterally, no wheezing ,rub or rales, or crackles. Chest wall is symmetric and without deformity. No signs of trauma. Chest wall is nontender. No signs of respiratory distress. Resonance is normal upon percussion bilaterally. Gastrointestinal: Abdomen symmetric, non-distended, soft, non-tender, normal bowel sounds x4 quadrant, normoactive, no hepatosplenomegaly , no masses , no bruit, no flank pain bilaterally. No voluntary guarding, rebound, or rigidity. No tenderness to percussion. No pulsatile masses. Equal femoral pulses. No Ramírez's sign or McBurney point tenderness. Back; no CVA tenderness bilaterally, no deformities. Neck and back are without deformity as well. No tenderness noted on palpation of the spinous processes. Spinous processes are midline. Cervical, thoracic, and lumbar paraspinal muscles are not tender and are without spasm. : normal external genitalia, without lesions, swelling, masses or tenderness. Musculoskeletal: Extremities, normal range of motion, non-tender, muscle strength 5/5 x 4. Negative Homans signs bilaterally on lower extremity. Distal pulses full symmetrical, no clubbing, cyanosis , edema. Neurological: Speech is clear, alert, and oriented x 4. No motor or sensory deficit, deep tendon reflexes normal, cerebellar intact. Cranial nerves II-XII intact. Psych: Alert and or appropriate, normal affect. Vascular: Good distal pulses, which are equal x4; capillary refill less than 2 seconds. Lymphatic, no lymphadenopathy. *Problems/Diagnosis: (1) CHF (congestive heart failure), NYHA class III (2) CHF exacerbation Total Time Spent on D/C: > 30 Minutes Date of Service: Jul 22, 2025 Billing Provider: SHABANA HOBBS MD Common Visit Codes: 07648-XEI/OBS DISCH DAY >30min SHABANA HOBBS MD Jul 22, 2025 18:46
--- NOTE | 2025-07-23 08:43 | CARDIOLOGY REPORT ---
DATE OF SERVICE: 07/22/2025 DICTATING PHYSICIAN: MILLICENT MICHELLE DO CARDIAC CATHETERIZATION REPORT PROCEDURES PERFORMED: 1. Implantation of permanent dual chamber implantable cardioverter-defibrillator with endocardial electrodes. 2. Defibrillation testing (upper limit of vulnerability). 3. 45 minutes of conscious sedation supervision. PREOPERATIVE DIAGNOSES: 1. Severe dilated ischemic cardiomyopathy. 2. Sick sinus/symptomatic bradycardia secondary to necessary medical treatment (beta blockers). 3. Coronary artery disease. POSTOPERATIVE DIAGNOSES: 1. Severe dilated ischemic cardiomyopathy. 2. Sick sinus/symptomatic bradycardia secondary to medical treatment (beta blockers). 3. Coronary artery disease. 4. 45 minutes of conscious sedation supervision. CLINICAL HISTORY: This 60-year-old man with a relatively longstanding diabetes has recently been treated for congestive heart failure. He has had a cardiac catheterization demonstrating severe coronary artery disease that is not readily amenable to either PCI or CABG. Most recent evaluation of his LVEF revealed an ejection fraction of not better than about 15%. He has previously taken metoprolol and on only a modest dose of 25 mg twice a day, but on that dosing, he had severe bradycardia prompting reduction of the dose to 12.5 mg daily. The patient is deemed to need beta blockade. ANESTHESIA: Conscious sedation with local to skin. DEVICES IMPLANTED: Biotronik RV electrode, model #818865 and serial #[id number]; Biotronik atrial electrode, model #842498 and serial #[id number]; Biotronik pulse generator, model #038999 and serial #[id number]. DESCRIPTION OF PROCEDURE: The patient was sedated with fentanyl and Versed. He was then prepared and draped in the usual manner. The left pectoral area was liberally infiltrated with approximately 30 mL of 1% lidocaine containing a 1:100,000 mixture of epinephrine. Using a micropuncture set, a small guidewire was placed in the left subclavian vein. A 6 cm incision was made directly adjacent to the guidewire and a subcutaneous pocket was created with electrocautery. The guidewire was pulled into the pocket and using a micropuncture size-up sheath, a 0.035 guidewire and a 9-Gabonese dilator and sheath assembly were placed in the central venous circulation. The sheath was used to place the RV ICD electrode into the right atrium where it was prolapsed across the tricuspid valve and ultimately placed in the RV apex. The screw was extended, the stylet was withdrawn and sensing and pacing evaluation demonstrated an R-wave amplitude of 8 mV impedance of 540 ohms and a threshold for capture of 0.7 volts. A 6-Gabonese sheath was also placed in the subclavian vein. Using this sheath, the right atrial electrode was passed into the mid right atrium and the tip positioned in the right atrial appendage. The screw was extended. The stylet was withdrawn. Sensing and pacing evaluation demonstrated a P-wave amplitude of 2 mV and impedance of 708 ohms and a threshold for capture of 1 volt. Both sheaths were removed while ensuring stability of the electrodes on fluoroscopic observation. A 3-0 Vicryl suture was placed around the electrodes at their exit point from the pectoral fascia. The electrodes were further secured to the pectoral fascia using 2-0 Ethibond sutures around each suturing sleeve. Next, the generator was attached to the electrodes and together they were placed in the pocket. The generator was suspended with an 0 Ethibond suture. The pocket was irrigated with a vancomycin antibiotic solution. The subcutaneous layer was closed with 3-0 Vicryl and the skin was approximated with 4-0 Monocryl. ESTIMATED BLOOD LOSS: Approximately 10 mL. The patient was deliberately given one 15 joule T shock as a test of upper limit of vulnerability. This shock did not induce ventricular tachycardia/ventricular fibrillation. Initial carlos parameters were as follows: Mode 60 BPM, upper rate 130 BPM, amplitude on both electrodes set at 3.5 volts with a pulse width of 0.4 ms. The ventricular tachyarrhythmia algorithm was to be determined later today. A chest x-ray was pending at the time of this dictation. MILLICENT MICHELLE DO TID: [id number] RECEIPT: [id number] DORETHA/SIR TIGRE
== END 2025-07-22 13:30 | disposition home or self-care (01) | DRG 275 ==
LOC: ER 10:53 → ED HOLD 18:17 → EDBEDREQ 07-19 05:22 → PCU 3S 07-19 10:24
PROVIDERS: ADMIT Family Medicine; ATTEND Family Medicine
PROC: 4A023N7 Measurement of Cardiac Sampling and Pressure, Left Heart, Percutaneous Approach (ICD-10-PCS; principal; 2025-07-19)
PROC: B2151ZZ Fluoroscopy of Left Heart using Low Osmolar Contrast (ICD-10-PCS; 2025-07-19)
PROC: 0JH608Z Insertion of Defibrillator Generator into Chest Subcutaneous Tissue and Fascia, Open Approach (ICD-10-PCS; 2025-07-22)
PROC: 02H63KZ Insertion of Defibrillator Lead into Right Atrium, Percutaneous Approach (ICD-10-PCS; 2025-07-22)
PROC: B2111ZZ Fluoroscopy of Multiple Coronary Arteries using Low Osmolar Contrast (ICD-10-PCS; 2025-07-22)
PROC: 02HK3KZ Insertion of Defibrillator Lead into Right Ventricle, Percutaneous Approach (ICD-10-PCS; 2025-07-22)
DX: I25.10 Atherosclerotic heart disease of native coronary artery without angina pectoris (principal); I50.43 Acute on chronic combined systolic (congestive) and diastolic (congestive) heart failure; N17.0 Acute kidney failure with tubular necrosis; I49.5 Sick sinus syndrome; E78.5 Hyperlipidemia, unspecified; M10.9 Gout, unspecified; E11.22 Type 2 diabetes mellitus with diabetic chronic kidney disease; I25.5 Ischemic cardiomyopathy; N18.9 Chronic kidney disease, unspecified; I25.82 Chronic total occlusion of coronary artery; K21.9 Gastro-esophageal reflux disease without esophagitis; Z79.899 Other long term (current) drug therapy
CPT/HCPCS: 33249; 36415; 71045; 80048; 80053; 80061; 81001; 82948; 83735; 83880; 84100; 84443; 84484; 85025; 85610; 85730; 87081; 87324; 87449; 93005; 93458; 93641; 96365; 99152; 99153; 99285; A4565; A4615; A6258; C1721; C1725; C1760; C1769; C1894; C1898; G0378; J0690; J1644; J1815; J2003; J2250; J3010; J3373; J3490; J7030; Q9967

== ENCOUNTER 2025-09-09 07:36 | Day surgery (SDC) | payer BC ==
[~2025-09-09] VITALS: Ht 185.4 cm; Wt 108.4 kg
[2025-09-09] VITALS (8 sets, daily range): BP systolic 87–103; BP diastolic 58–73; PULSE 80–83; RESP 12–20; TEMP 98; O2SAT 93–97
[~2025-09-09 07:36] MED LIST changes: +AMIO200T27 PO; -AMIO200T72 PO; -EZET10TA48 PO; +EZET10TA80 PO; +GABA-530 PO; -LOP25T PO; +LOSA-415 PO; +METO25TA6 PO; +NITR0.4T51 SL; +ONDA-243 PO; +SPIR25TA PO
--- NOTE | 2025-09-09 08:07 | ELECTROCARDIOGRAPH REPORT ---
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 LORENA Wild Measurements Intervals [place] Rate: 99 P: 0 MT: 0 QRS: 52 QRSD: 82 T: 0 QT: 386 QTc: 496 Interpretive Statements Afib/flut and V-paced complexes No further rhythm analysis attempted due to paced rhythm Low voltage, extremity leads Nonspecific T abnormalities, lateral leads Borderline prolonged QT interval Electronically Signed On 09-09-2025 12:51:[address] LORENA Wild Please click the below link to view image of tracing.
[2025-09-09] MEDS ORDERED: normal saline 1000ml 1,000 ML IV SCH (08:10)
[2025-09-09] MEDS ORDERED: MIDAZolam 1mg/ml 10ml vial IV ONE (08:10)
[2025-09-09] MEDS ORDERED: fentaNYL/PF 50MCG/1 ML 2ML syringe IV ONE (08:10)
[2025-09-09] MEDS ORDERED: SPIR25TA5 PO (08:31)
[2025-09-09] MEDS ORDERED: METO-395 PO (08:31)
[2025-09-09] MEDS ORDERED: LOSA25TA41 PO (08:31)
[2025-09-09] MEDS ORDERED: SEMA2PEN INJ (08:31)
[2025-09-09] MEDS ORDERED: ASPI-1265 PO (08:31)
[2025-09-09] MEDS ORDERED: AMIO200T76 PO (08:31)
[2025-09-09] MEDS ORDERED: FURO-149 PO (08:31)
[2025-09-09] MEDS ORDERED: TADA20TA PO (08:32)
[2025-09-09 09:02] LABS: MEAN PLATELET VOLUME 9.0 FL (7.4-10.4); RED CELL DISTRIBUTION WIDTH 17.1 % (11.5-14.5)
[2025-09-09] MEDS ORDERED: fentaNYL/PF 50MCG/1 ML 2ML syringe ONE (09:08)
[2025-09-09] MEDS ORDERED: midazolam 1 mg/ML 2ml injection ONE (09:08)
[2025-09-09 09:27] LABS: CREATININE 1.74 MG/DL (0.60-1.10); INR 1.4 INR; TOTAL CARBON DIOXIDE 24.2 MMOL/L (24-32); eCRCL 50 ML/MIN; eGFR 40 ML/MIN
[2025-09-09] MEDS ORDERED: atropine 0.1mg/ml 10ml syringe ONE (09:34)
--- NOTE | 2025-09-09 09:54 | CARDIOLOGY REPORT ---
DATE OF SERVICE: 09/09/2025 DICTATING PHYSICIAN: MILLICENT MICHELLE DO PROCEDURE: DC cardioversion. PREPROCEDURAL DIAGNOSIS: Atrial fibrillation. POSTPROCEDURAL DIAGNOSIS: Atrial fibrillation, cardioverted to sinus rhythm. DESCRIPTION OF PROCEDURE: The patient was sedated with fentanyl and Versed. He was then given 1360 joules synchronized shock resulting in conversion to sinus rhythm. COMPLICATIONS: There were no complications. PLAN: Ongoing medical therapy. FINAL DIAGNOSIS: Atrial fibrillation, cardioverted to sinus rhythm. MILLICENT MICHELLE DO TID: [id number] RECEIPT: [id number] DORETHA/ARLEEN
--- NOTE | 2025-09-09 10:28 | ELECTROCARDIOGRAPH REPORT ---
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 LORENA Wild Measurements Intervals [place] Rate: 82 P: 51 CO: 244 QRS: 47 QRSD: 96 T: 76 QT: 404 QTc: 472 Interpretive Statements Sinus rhythm Prolonged CO interval Low voltage, extremity leads Baseline wander in lead(s) II,III,aVL,aVF,V1,V2,V3,V4,V6 Electronically Signed On 09-09-2025 12:52:[address] LORENA Wild Please click the below link to view image of tracing.
== END 2025-09-09 11:40 | disposition home or self-care (01) ==
LOC: SSTAY O 07:36
PROVIDERS: ATTEND Internal Medicine Cardiovascular Disease
DX: I48.91 Unspecified atrial fibrillation (principal); I25.10 Atherosclerotic heart disease of native coronary artery without angina pectoris; I42.0 Dilated cardiomyopathy; G43.909 Migraine, unspecified, not intractable, without status migrainosus; I25.2 Old myocardial infarction; I13.0 Hypertensive heart and chronic kidney disease with heart failure and stage 1 through stage 4 chronic kidney disease, or unspecified chronic kidney disease; N18.9 Chronic kidney disease, unspecified; I50.9 Heart failure, unspecified; E11.22 Type 2 diabetes mellitus with diabetic chronic kidney disease; Z88.3 Allergy status to other anti-infective agents; Z82.49 Family history of ischemic heart disease and other diseases of the circulatory system; Z87.891 Personal history of nicotine dependence; Z79.899 Other long term (current) drug therapy; Z79.01 Long term (current) use of anticoagulants
CPT/HCPCS: 36415; 80048; 83735; 85025; 85610; 92960; 93005; 99152; J2250; J3010; J7030; 99153; J0461